=== PATIENT | female | born 1985 | race Caucasian/White ===

== ENCOUNTER 2021-06-19 14:43 | Inpatient (IN) ==
--- NOTE | 2021-06-19 17:03 | XRay Report ---
XR chest 1V portable CLINICAL HISTORY: Sepsis. COMPARISON STUDY: No previous studies for comparison. FINDINGS: Lung volumes are mildly diminished. There is no pneumothorax. There may be small bilateral pleural effusions. There is enlargement of the cardiac silhouette. Extensive bilateral airspace opaci ties are noted as well as interstitial thickening. IMPRESSION: 1. Extensive bilateral airspace opacities. The findings favor multifocal pneumonia. Radiographic foll ow-up to ensure resolution is recommended. 2. Low lung volumes. Equivocal bilateral pleural effusions. 3. Mild enlargement of the cardiac silhouette. ACT 112: Negative or not required by law. Electronically signed by: Isidro Marrero M.D. 06/19/2021 5:01 PM
--- NOTE | 2021-06-19 17:26 | Emergency Department Note ---
History of Present Illness General Chief complaint: Shortness of Breath/Dyspnea Stated complaint: COVID POSITIVE/SOB Time Seen by Provider: 06/19/21 15:46 History of Present Illness Provider complaint: Shortness of breath, weakness, cough, fever, nausea vomiting, Covid positiv Onset (ago): day(s) 5 Maximum Pain Intensity: 8 Associated symptoms: + chest pain, + cough, + fever/chills, + headaches, + malaise, + nausea/vomiting and + shortness of breath 35-year-old female presents emergency department for shortness of breath, weakness, cough, fever, nausea and vomiting, malaise. Patient reports she tested positive for COVID-19 5 days ago. Patient states she has been seen in the [place] emergency department multiple times. Patient states that she was there on and was told that she has a blood clot in her lung and sent home on Eliquis. Patient states she went back on Thursday and they told her t hat she did not have a blood clot in her lung and to stop taking the Eliquis. After her visit on Thursday she was discharged with home oxygen and steroids. Patient reports she is not been able to keep any fluids in her body for the last 4 days and has not felt better since being on the steroids or oxygen. Patient reports that she did have 1 dose of the Covid vaccine but is not fully vaccinated. Patient states she was discharged with oxygen supposed be on 2 L of oxygen. Patient reports she felt increasing shortness of breath so she called her PCP Dr. Jauregui who took her to increase her oxygen to 4 L of oxygen via nasal cannula. Patient states on 4 L of oxygen she still feels short of breath. Home Medications Medication Instructions Recorded Confirmed Type naproxen 500 mg tablet 500 mg PO Q12H PRN tab 03/14/21 06/19/21 History hydroxyzine HCl 25 mg tablet 25 mg PO TID PRN #30 tab 03/18/21 06/19/21 Rx omeprazole 20 mg tablet,delayed 20 mg PO DAILY #30 tab 04/05/21 06/19/21 Rx release venlafaxine 75 mg capsule,extended 150 mg PO DAILY 30 Days #60 cap 05/15/21 06/19/21 Rx release 24 hr dexamethasone 6 mg tablet 6 mg PO DAILY 7 Days #7 tab 06/17/21 06/19/21 Rx apixaban 5 mg (74 tabs) tablets in 5 mg PO DAILY 06/19/21 06/19/21 History a dose pack (Eliquis) Allergies Allergy/AdvReac Type Severity Reaction Status Date / Time No Known Allergies Allergy Mild Unverified 06/19/21 15:42 Past Med/Surg History Medical History (Updated 06/19/21 @ 21:44 by Dane Mcknight) Anxiety COVID Depression GERD (gastroesophageal reflux disease) History of pneumonia Migraine headache Vitamin D deficiency Surgical History H/O tubal ligation S/P right knee arthroscopy Family History Father Diabetes Mother No problems noted. Denies family history of Ovarian cancer Prostate cancer Myocardial infarction Breast cancer Colorectal cancer Cancer Social History Smoking Status: Current every day smoker Tobacco Type: E-cigarettes / Vaping Age Started Using Tobacco: 19; Age Quit Using Tobacco: 33; packs per day: 0.5; Years Smoked: 3; Second Hand Exposure: Yes; Hx Alcohol Use: No Hx Substance Use: No Preferred Language: Ivorian Visual Impairment: No Limitations Hearing Ability: Normal Belly Roller Required: No Beliefs That Will Affect Care: None marital status: Current Living Situation: Spouse Current Living Situation Comment: spouse, 2 children current occupational status: employed current occupation: works at [employer] How many Children do You have: 2 Feels Safe at Home: Yes Childhood Exposure to Second-Hand Smoke: Yes caffeine: Yes during the past year weight has: remained stable Dental Care, Regularly: Yes Physical Activity Frequency: Does not Exercise Physical Activity Frequency Comment: 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,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) Seatbelt Use: always Sunscreen Use: Yes Review of Systems A total of 10 systems reviewed and were otherwise negative Physical Exam Vital Signs Vital Signs - 24 hr 06/19/21 14:59 06/19/21 15:52 06/19/21 16:00 Temperature 36.4 C L Temperature Source Temporal Artery Scan Pulse Rate 95 H 87 94 H Pulse Rate [Apical] Pulse Rate from SpO2 Sensor 88 95 H Pulse Rhythm [Apical] Respiratory Rate 24 25 H 22 Respiratory Effort / Characteristics Spontaneous Labored Respiratory Depth Normal Respiratory Pattern Regular Blood Pressure 165/98 H Blood Pressure [Left Arm] Blood Pressure Mean 120 Blood Pressure Mean [Left Arm] Blood Pressure Position [Left Arm] Pulse Oximetry 92 90 90 Oxygen Delivery Method Nasal Cannula Oxygen Flow Rate 4 Fraction of Inspired Oxygen Sepsis Recent Fever Within 48 Hours No Sepsis New/Unexplained Change in Mental Status No Sepsis Action Taken by Nursing No Action Required 06/19/21 16:10 06/19/21 16:17 06/19/21 16:20 Temperature Temperature Source Pulse Rate 92 H 94 H Pulse Rate [Apical] 95 H Pulse Rate from SpO2 Sensor 92 H 94 H Pulse Rhythm [Apical] Respiratory Rate 24 30 H 29 H Respiratory Effort / Characteristics Spontaneous Respiratory Depth Respiratory Pattern Blood Pressure Blood Pressure [Left Arm] Blood Pressure Mean Blood Pressure Mean [Left Arm] Blood Pressure Position [Left Arm] Pulse Oximetry 91 93 91 Oxygen Delivery Method High Flow Nasal Cannula Oxygen Flow Rate 30 Fraction of Inspired Oxygen 60 Sepsis Recent Fever Within 48 Hours Sepsis New/Unexplained Change in Mental Status Sepsis Action Taken by Nursing 06/19/21 16:30 06/19/21 16:40 06/19/21 16:50 Temperature Temperature Source Pulse Rate 94 H 94 H 94 H Pulse Rate [Apical] Pulse Rate from SpO2 Sensor 94 H 93 H 90 Pulse Rhythm [Apical] Respiratory Rate 28 H 29 H 23 Respiratory Effort / Characteristics Respiratory Depth Respiratory Pattern Blood Pressure Blood Pressure [Left Arm] Blood Pressure Mean Blood Pressure Mean [Left Arm] Blood Pressure Position [Left Arm] Pulse Oximetry 92 92 93 Oxygen Delivery Method Oxygen Flow Rate Fraction of Inspired Oxygen Sepsis Recent Fever Within 48 Hours Sepsis New/Unexplained Change in Mental Status Sepsis Action Taken by Nursing 06/19/21 17:00 06/19/21 17:10 06/19/21 17:20 Temperature Temperature Source Pulse Rate 93 H 95 H 96 H Pulse Rate [Apical] Pulse Rate from SpO2 Sensor 93 H 96 H 95 H Pulse Rhythm [Apical] Respiratory Rate 30 H 27 H 31 H Respiratory Effort / Characteristics Respiratory Depth Respiratory Pattern Blood Pressure 152/99 H Blood Pressure [Left Arm] Blood Pressure Mean 116 Blood Pressure Mean [Left Arm] Blood Pressure Position [Left Arm] Pulse Oximetry 93 93 93 Oxygen Delivery Method Oxygen Flow Rate Fraction of Inspired Oxygen Sepsis Recent Fever Within 48 Hours Sepsis New/Unexplained Change in Mental Status Sepsis Action Taken by Nursing 06/19/21 17:30 06/19/21 17:40 06/19/21 17:50 Temperature Temperature Source Pulse Rate 98 H 96 H 97 H Pulse Rate [Apical] Pulse Rate from SpO2 Sensor 98 H 98 H 97 H Pulse Rhythm [Apical] Respiratory Rate 27 H 25 H 28 H Respiratory Effort / Characteristics Respiratory Depth Respiratory Pattern Blood Pressure Blood Pressure [Left Arm] Blood Pressure Mean Blood Pressure Mean [Left Arm] Blood Pressure Position [Left Arm] Pulse Oximetry 93 95 93 Oxygen Delivery Method Oxygen Flow Rate Fraction of Inspired Oxygen Sepsis Recent Fever Within 48 Hours Sepsis New/Unexplained Change in Mental Status Sepsis Action Taken by Nursing 06/19/21 18:00 06/19/21 18:10 06/19/21 18:52 Temperature Temperature Source Pulse Rate 110 H 102 H Pulse Rate [Apical] 107 H Pulse Rate from SpO2 Sensor 111 H 101 H Pulse Rhythm [Apical] Respiratory Rate 30 H 30 H 33 H Respiratory Effort / Characteristics Spontaneous Respiratory Depth Respiratory Pattern Blood Pressure Blood Pressure [Left Arm] Blood Pressure Mean Blood Pressure Mean [Left Arm] Blood Pressure Position [Left Arm] Pulse Oximetry 91 91 94 Oxygen Delivery Method High Flow Nasal Cannula Oxygen Flow Rate 40 Fraction of Inspired Oxygen 80 Sepsis Recent Fever Within 48 Hours Sepsis New/Unexplained Change in Mental Status Sepsis Action Taken by Nursing 06/19/21 20:03 06/19/21 20:04 06/19/21 20:05 Temperature Temperature Source Pulse Rate Pulse Rate [Apical] 113 H Pulse Rate from SpO2 Sensor Pulse Rhythm [Apical] Regular Respiratory Rate 16 34 H Respiratory Effort / Characteristics Non-Labored Labored Nasal Flaring Short of Breath SOB on Exertion Respiratory Depth Normal Respiratory Pattern Blood Pressure Blood Pressure [Left Arm] 180/110 H Blood Pressure Mean Blood Pressure Mean [Left Arm] 133 Blood Pressure Position [Left Arm] Sitting Pulse Oximetry 92 91 91 Oxygen Delivery Method BiPAP High Flow Nasal Cannula Oxygen Flow Rate Fraction of Inspired Oxygen Sepsis Recent Fever Within 48 Hours Sepsis New/Unexplained Change in Mental Status Sepsis Action Taken by Nursing Physical Exam GENERAL: She is oriented to person, place, and time. She appears well-developed and well-nourished. She does not appear distressed. HENT: Exam performed. -Head: Normocephalic and atraumatic. -Right Ear: External ear normal. No mastoid tenderness. -Left Ear: External ear normal. No mastoid tenderness. -Mouth/Throat: The oropharynx is clear and moist. No trismus in the jaw. No dental abscesses or uvula swelling. No oropharyngeal exudate or tonsillar abscesses. EYES: Conjunctivae and EOM are normal. Pupils are equal, round, and reactive to light. Right eye exhibits no discharge. Left eye exhibits no discharge. No scleral icterus. NECK: Normal range of motion. Neck supple. No JVD present. No spinous process tenderness present. No carotid bruit present. No rigidity. No tracheal deviation and normal range of motion present. No Brudzinski's sign and no Kernig's sign noted. CV: Normal rate, regular rhythm, normal heart sounds and intact distal pulses. There is no peripheral edema. Palpable radial pulses bue. PULM/CHEST: Tachypneic. Rhonchi bilaterally. -Chest Wall: She exhibits no tenderness. ABD: The abdomen is soft and obese Bowel sounds are normal. She has no distension. No mass is present. There is no tenderness. There is no rebound, no guarding, no Quiñonez's sign and no tenderness at McBurney's point. Rovsig negative MUSC/SKEL: Normal range of motion. There is no peripheral edema, tenderness or deformity. LYMPH: No cervical adenopathy. NEURO: She is alert and oriented to person, place, and time. She has normal strength. No cranial nerve deficit or sensory deficit. Coordination and gait normal. GCS eye subscore is 4. GCS verbal subscore is 5. GCS motor subscore is 6. Cerebellar tests wnl. SKIN: Skin is warm and dry. She is not diaphoretic. PSYCH: She has a normal mood and affect. Behavior is normal. Judgment and thought content normal. Course Course 1546: The patient was evaluated in room B8. A complete history and physical exam was performed Cardiac monitoring: An order was placed for continuous cardiac monitoring. The monitor shows a rate of 110 with sinus tachycardia rhythm EMR reviewed. There is a note from an on-call provider Severo on June 15, 2021. Patient was seen and diagnosed with COVID-[address] [facility] emergency department. Patient had a CT that was read overnight and a small pulmonary embolism and infarct was read. She was started on Eliquis starter pack and sent home. A repeat read by the radiologist the next day states study was limited for PE and cannot be excluded. Patient was started on a azithromycin and dexamethasone 6 mg on June 17, 2021 by provider Jonatan. 1830: Labs show white blood cell count 5.7. Hemoglobin 12.7. VBG shows no evidence of hypercapnia. Venous pH 7.51 venous PCO2 44 venous bicarb 35. Electrolytes show potassium of 2.8. Lactic acid is 1.9. Potassium will be replaced in the emergency department IV and orally. 1900:Called to bedside by nursing. Patient is having difficulty with the high flow nasal cannula and saying she is having difficulty breathing. We will increase the high flow oxygen. Patient vomited. Patient states she feels very anxious. Patient ordered Ativan and Zofran. 2000: Patient not tolerating high flow nasal cannula well. Will switch patient to BiPAP. 2029: CTA negative for PE. Imaging shows bilateral multifocal pneumonia. Patient not comfortable on BiPAP switch back to high flow nasal cannula. [facility]. He asked for ABG and Decadron 6 mg IV to be ordered for the patient also. Administered Medications Potassium Chloride 40 meq/ (Sodium Chloride) 1,020 mls @ 125 mls/hr IV .Q8H10M TIFFANI Stop: 07/19/21 18:29 Last Admin: 06/19/21 19:55 Dose: 125 mls/hr Documented by: [id number] Discontinued Medications Dexamethasone (Dexamethasone Sod Inj 4 Mg/Ml Vial) 6 mg IV NOW STA Stop: 06/19/21 20:15 Last Admin: 06/19/21 20:25 Dose: 6 mg Documented by: [id number] Lorazepam (Ativan) 0.5 mg in 1 mls @ 1 mls/min IV NOW STA Stop: 06/19/21 19:11 Last Admin: 06/19/21 19:19 Dose: 1 mls/min Documented by: [id number] Morphine Sulfate (Morphine Sulfate 4 Mg/Ml 1 Ml Carp\Vial) 4 mg IV NOW STA Stop: 06/19/21 20:21 Last Admin: 06/19/21 20:25 Dose: 4 mg Documented by: [id number] Ondansetron HCl (Ondansetron Inj 2 Mg/Ml 2 Ml Vial) 4 mg IV NOW STA Stop: 06/19/21 19:17 Last Admin: 06/19/21 19:19 Dose: 4 mg Documented by: [id number] Ondansetron HCl (Ondansetron Inj 2 Mg/Ml 2 Ml Vial) Confirm Administered Dose 4 mg .ROUTE .STK-MED ONE Stop: 06/19/21 19:18 Last Admin: 06/19/21 20:14 Dose: Not Given Documented by: [id number] Potassium Chloride (Potassium Chloride 10 Meq Tabcr) 40 meq PO NOW STA Stop: 06/19/21 18:07 Last Admin: 06/19/21 19:18 Dose: 40 meq Documented by: [id number] Critical Care Time Critical Care Time: Yes Total Critical Care Time: 43 I have personally spent greater than 43 minutes of critical care time in the direct management of this patient. This includes bedside care, interpretation of diagnostic studies, and testing, discussion with consultants, patient, and f amily members, and other required patient management activities. This 43 minutes is in excess of all separately billable procedures. Medical Decision Making Laboratory Data Result diagrams: 06/19/21 17:18 06/19/21 17:18 Lab Results 06/19/21 06/19/21 06/19/21 Range/Units 17:18 17:18 17:18 WBC 5.72 (4.8-10.8) K/uL RBC 4.22 (4.2-5.4) M/uL Hgb 12.7 (12.0-16.0) g/dL Hct 36.7 L (37-47) % MCV 87.0 (80-100) fL MCH 30.1 (25-34) pg MCHC 34.6 (32-36) g/dL RDW Std Deviation 44.2 (36.4-46.3) fL RDW Coeff of Jose Rafael 13.8 (11.5-14.5) % Plt Count 286 (130-400) K/uL MPV 9.8 (7.4-10.4) fL Immature Gran % (Auto) 0.9 % Neut % (Auto) 80.8 % Lymph % (Auto) 10.8 % [place] % (Auto) 7.3 % Eos % (Auto) 0.0 % Baso % (Auto) 0.2 % Neut # (Auto) 4.62 (1.4-6.5) K/uL Lymph # (Auto) 0.62 L (1.2-3.4) K/uL [place] # (Auto) 0.42 (0.11-0.59) K/uL Eos # (Auto) 0.00 (0-0.5) K/uL Baso # (Auto) 0.01 (0-0.2) K/uL Immature Gran # (Auto) 0.05 H (0.00-0.02) K/uL PT 10.7 (9.0-12.0) Seconds INR 1.1 (0.9-1.1) APTT 29.6 (21.0-31.0) Seconds PTT Ratio 1.1 ABG pH (7.35-7.45) ABG pCO2 (35-46) mmHg ABG pO2 (80-95) mmHg ABG HCO3 (19-24) mmol/L ABG O2 Saturation (90-95) % ABG Base Excess (-9-1.8) mEq/L Jaskaran Test (Pos) VBG pH 7.51 H (7.36-7.41) VBG pCO2 44 (38-50) mmHg VBG pO2 32 mmHg VBG HCO3 35 mmol/L VBG O2 Saturation 66.2 % VBG Base Excess 10.4 mEq/L Barometric Pressure 736.1 mm/Hg Oxygen Given Sodium (136-145) mmol/L Potassium (3.5-5.1) mmol/L Chloride (98-107) mmol/L Carbon Dioxide (21-32) mmol/L Anion Gap (3-11) BUN (7-18) mg/dl Creatinine (0.6-1.2) mg/dl Est Cr Clr Drug Dosing Est GFR ( Amer) ml/min Est GFR (Non-Af Amer) ml/min BUN/Creatinine Ratio (10-20) Glucose (70-99) mg/dl Lactate (0.4-2.0) mmol/L Calcium (8.5-10.1) mg/dl Magnesium (1.8-2.4) mg/dl Total Bilirubin (0.2-1) mg/dl AST (15-37) U/L ALT (12-78) U/L Alkaline Phosphatase (45-117) U/L Total Creatine Kinase (26-192) U/L Troponin I (0-0.045) ng/ml Total Protein (6.4-8.2) gm/dl Albumin (3.4-5.0) gm/dl Globulin (2.5-4.0) gm/dl Albumin/Globulin Ratio (0.9-2) Procalcitonin (0-0.5) ng/ml Urine Color Urine Appearance (Clear) Urine pH (4.5-7.5) Ur Specific Dresser (1.000-1.030) Urine Protein (Negative) Urine Glucose (UA) (Negative) Urine Ketones (Negative) Urine Blood (Negative) Urine Nitrite (Negative) Urine Bilirubin (Negative) Urine Urobilinogen (Negative) Ur Leukocyte Esterase (Negative) COVID-19 Eval Order 06/19/21 06/19/21 06/19/21 Range/Units 17:18 17:18 17:18 WBC (4.8-10.8) K/uL RBC (4.2-5.4) M/uL Hgb (12.0-16.0) g/dL Hct (37-47) % MCV (80-100) fL MCH (25-34) pg MCHC (32-36) g/dL RDW Std Deviation (36.4-46.3) fL RDW Coeff of Jose Rafael (11.5-14.5) % Plt Count (130-400) K/uL MPV (7.4-10.4) fL Immature Gran % (Auto) % Neut % (Auto) % Lymph % (Auto) % [place] % (Auto) % Eos % (Auto) % Baso % (Auto) % Neut # (Auto) (1.4-6.5) K/uL Lymph # (Auto) (1.2-3.4) K/uL [place] # (Auto) (0.11-0.59) K/uL Eos # (Auto) (0-0.5) K/uL Baso # (Auto) (0-0.2) K/uL Immature Gran # (Auto) (0.00-0.02) K/uL PT (9.0-12.0) Seconds INR (0.9-1.1) APTT (21.0-31.0) Seconds PTT Ratio ABG pH (7.35-7.45) ABG pCO2 (35-46) mmHg ABG pO2 (80-95) mmHg ABG HCO3 (19-24) mmol/L ABG O2 Saturation (90-95) % ABG Base Excess (-9-1.8) mEq/L Jaskaran Test (Pos) VBG pH (7.36-7.41) VBG pCO2 (38-50) mmHg VBG pO2 mmHg VBG HCO3 mmol/L VBG O2 Saturation % VBG Base Excess mEq/L Barometric Pressure mm/Hg Oxygen Given Sodium 135 L (136-145) mmol/L Potassium 2.8 L (3.5-5.1) mmol/L Chloride 95 L (98-107) mmol/L Carbon Dioxide 32 (21-32) mmol/L Anion Gap 8.0 (3-11) BUN 10 (7-18) mg/dl Creatinine 0.75 (0.6-1.2) mg/dl Est Cr Clr Drug Dosing Not Reportable Est GFR ( Amer) 118.0 ml/min Est GFR (Non-Af Amer) 101.8 ml/min BUN/Creatinine Ratio 13.1 (10-20) Glucose 168 H (70-99) mg/dl Lactate 1.9 (0.4-2.0) mmol/L Calcium 8.5 (8.5-10.1) mg/dl Magnesium 2.6 H (1.8-2.4) mg/dl Total Bilirubin 0.5 (0.2-1) mg/dl AST 42 H (15-37) U/L ALT 33 (12-78) U/L Alkaline Phosphatase 66 (45-117) U/L Total Creatine Kinase 308 H (26-192) U/L Troponin I < 0.015 (0-0.045) ng/ml Total Protein 7.8 (6.4-8.2) gm/dl Albumin 2.6 L (3.4-5.0) gm/dl Globulin 5.2 H (2.5-4.0) gm/dl Albumin/Globulin Ratio 0.5 L (0.9-2) Procalcitonin 37.58 H (0-0.5) ng/ml Urine Color Urine Appearance (Clear) Urine pH (4.5-7.5) Ur Specific Dresser (1.000-1.030) Urine Protein (Negative) Urine Glucose (UA) (Negative) Urine Ketones (Negative) Urine Blood (Negative) Urine Nitrite (Negative) Urine Bilirubin (Negative) Urine Urobilinogen (Negative) Ur Leukocyte Esterase (Negative) COVID-19 Eval Order 06/19/21 06/19/21 06/19/21 Range/Units 17:18 20:28 20:28 WBC (4.8-10.8) K/uL RBC (4.2-5.4) M/uL Hgb (12.0-16.0) g/dL Hct (37-47) % MCV (80-100) fL MCH (25-34) pg MCHC (32-36) g/dL RDW Std Deviation (36.4-46.3) fL RDW Coeff of Jose Rafael (11.5-14.5) % Plt Count (130-400) K/uL MPV (7.4-10.4) fL Immature Gran % (Auto) % Neut % (Auto) % Lymph % (Auto) % [place] % (Auto) % Eos % (Auto) % Baso % (Auto) % Neut # (Auto) (1.4-6.5) K/uL Lymph # (Auto) (1.2-3.4) K/uL [place] # (Auto) (0.11-0.59) K/uL Eos # (Auto) (0-0.5) K/uL Baso # (Auto) (0-0.2) K/uL Immature Gran # (Auto) (0.00-0.02) K/uL PT (9.0-12.0) Seconds INR (0.9-1.1) APTT (21.0-31.0) Seconds PTT Ratio ABG pH (7.35-7.45) ABG pCO2 (35-46) mmHg ABG pO2 (80-95) mmHg ABG HCO3 (19-24) mmol/L ABG O2 Saturation (90-95) % ABG Base Excess (-9-1.8) mEq/L Jaskaran Test (Pos) VBG pH (7.36-7.41) VBG pCO2 (38-50) mmHg VBG pO2 mmHg VBG HCO3 mmol/L VBG O2 Saturation % VBG Base Excess mEq/L Barometric Pressure mm/Hg Oxygen Given Sodium (136-145) mmol/L Potassium (3.5-5.1) mmol/L Chloride (98-107) mmol/L Carbon Dioxide (21-32) mmol/L Anion Gap (3-11) BUN (7-18) mg/dl Creatinine (0.6-1.2) mg/dl Est Cr Clr Drug Dosing Est GFR ( Amer) ml/min Est GFR (Non-Af Amer) ml/min BUN/Creatinine Ratio (10-20) Glucose (70-99) mg/dl Lactate (0.4-2.0) mmol/L Calcium (8.5-10.1) mg/dl Magnesium (1.8-2.4) mg/dl Total Bilirubin (0.2-1) mg/dl AST (15-37) U/L ALT (12-78) U/L Alkaline Phosphatase (45-117) U/L Total Creatine Kinase Cancelled (26-192) U/L Troponin I (0-0.045) ng/ml Total Protein (6.4-8.2) gm/dl Albumin (3.4-5.0) gm/dl Globulin (2.5-4.0) gm/dl Albumin/Globulin Ratio (0.9-2) Procalcitonin (0-0.5) ng/ml Urine Color Dark Yellow Urine Appearance Clear (Clear) Urine pH 6.5 (4.5-7.5) Ur Specific Dresser > 1.045 H (1.000-1.030) Urine Protein 3+ H (Negative) Urine Glucose (UA) Negative (Negative) Urine Ketones Negative (Negative) Urine Blood 3+ H (Negative) Urine Nitrite Negative (Negative) Urine Bilirubin Negative (Negative) Urine Urobilinogen Negative (Negative) Ur Leukocyte Esterase Negative (Negative) COVID-19 Eval Order Covid19 at [facility] 06/19/21 Range/Units 20:28 WBC (4.8-10.8) K/uL RBC (4.2-5.4) M/uL Hgb (12.0-16.0) g/dL Hct (37-47) % MCV (80-100) fL MCH (25-34) pg MCHC (32-36) g/dL RDW Std Deviation (36.4-46.3) fL RDW Coeff of Jose Rafael (11.5-14.5) % Plt Count (130-400) K/uL MPV (7.4-10.4) fL Immature Gran % (Auto) % Neut % (Auto) % Lymph % (Auto) % [place] % (Auto) % Eos % (Auto) % Baso % (Auto) % Neut # (Auto) (1.4-6.5) K/uL Lymph # (Auto) (1.2-3.4) K/uL [place] # (Auto) (0.11-0.59) K/uL Eos # (Auto) (0-0.5) K/uL Baso # (Auto) (0-0.2) K/uL Immature Gran # (Auto) (0.00-0.02) K/uL PT (9.0-12.0) Seconds INR (0.9-1.1) APTT (21.0-31.0) Seconds PTT Ratio ABG pH 7.53 H* (7.35-7.45) ABG pCO2 34 L (35-46) mmHg ABG pO2 98 H (80-95) mmHg ABG HCO3 28 H (19-24) mmol/L ABG O2 Saturation 95.5 H (90-95) % ABG Base Excess 5.5 H (-9-1.8) mEq/L Jaskaran Test Pos (Pos) VBG pH (7.36-7.41) VBG pCO2 (38-50) mmHg VBG pO2 mmHg VBG HCO3 mmol/L VBG O2 Saturation % VBG Base Excess mEq/L Barometric Pressure 737.1 mm/Hg Oxygen Given 70% Sodium (136-145) mmol/L Potassium (3.5-5.1) mmol/L Chloride (98-107) mmol/L Carbon Dioxide (21-32) mmol/L Anion Gap (3-11) BUN (7-18) mg/dl Creatinine (0.6-1.2) mg/dl Est Cr Clr Drug Dosing Est GFR ( Amer) ml/min Est GFR (Non-Af Amer) ml/min BUN/Creatinine Ratio (10-20) Glucose (70-99) mg/dl Lactate (0.4-2.0) mmol/L Calcium (8.5-10.1) mg/dl Magnesium (1.8-2.4) mg/dl Total Bilirubin (0.2-1) mg/dl AST (15-37) U/L ALT (12-78) U/L Alkaline Phosphatase (45-117) U/L Total Creatine Kinase (26-192) U/L Troponin I (0-0.045) ng/ml Total Protein (6.4-8.2) gm/dl Albumin (3.4-5.0) gm/dl Globulin (2.5-4.0) gm/dl Albumin/Globulin Ratio (0.9-2) Procalcitonin (0-0.5) ng/ml Urine Color Urine Appearance (Clear) Urine pH (4.5-7.5) Ur Specific Dresser (1.000-1.030) Urine Protein (Negative) Urine Glucose (UA) (Negative) Urine Ketones (Negative) Urine Blood (Negative) Urine Nitrite (Negative) Urine Bilirubin (Negative) Urine Urobilinogen (Negative) Ur Leukocyte Esterase (Negative) COVID-19 Eval Order Imaging Data Radiologist's Impression: Chest X-Ray 06/19/21 16:09 XR chest 1V portable CLINICAL HISTORY: Sepsis. COMPARISON STUDY: No previous studies for comparison. FINDINGS: Lung volumes are mildly diminished. There is no pneumothorax. There may be small bilateral pleural effusions. There is enlargement of the cardiac silhouette. Extensive bilateral airspace opacities are noted as well as interstitial thickening. IMPRESSION: 1. Extensive bilateral airspace opacities. The findings favor multifocal pneumonia. Radiographic follow-up to ensure resolution is recommended. 2. Low lung volumes. Equivocal bilateral pleural effusions. 3. Mild enlargement of the cardiac silhouette. ACT 112: Negative or not required by law. Electronically signed by: Isidro Marrero M.D. 06/19/2021 5:01 PM Chest CTA 06/19/21 17:26 CT ANGIOGRAPHY OF THE CHEST, PULMONARY EMBOLUS PROTOCOL CLINICAL HISTORY: Shortness of breath. Covid. COMPARISON STUDY: Chest radiograph performed earlier today. TECHNIQUE: Following IV administration of 120 mL of Optiray, helical axial images of the chest were obtained utilizing the pulmonary embolus protocol. Maximal intensity projections and sagittal and coronal reformats were viewed on an independent 3D workstation. IV contrast was administered without complication. Automated exposure control was utilized for the study. A dose lowering technique was utilized adhering to the principles of ALARA. CT DOSE: 845.92 mGy.cm FINDINGS: No pulmonary emboli are identified although segmental and subsegmental pulmonary arteries are suboptimally assessed due to artifact on this exam. Mild cardiomegaly is noted. There is no pericardial effusion. Prominent mediastinal and hilar lymph nodes are likely reactive. Probable small hiatal hernia is noted. No pneumothorax is present. Trace bilateral pleural effusions are noted. Extensive bilateral airspace opacities throughout the lungs are noted. Central airways are patent. No acute fracture or suspicious lesion is identified within visualized portions of the bony thorax. There is mild splenomegaly. Probable hepatic steatosis is noted. IMPRESSION: 1. No pulmonary emboli identified although this exam is moderately compromised by artifact, as described above. 2. Extensive bilateral airspace opacities suggestive of viral pneumonia. 3. Mild cardiomegaly. 4. Trace bilateral pleural effusions. ACT 112: Negative or not required by law. Electronically signed by: Isidro Marrero M.D. 06/19/2021 8:14 PM ECG Data Indication: + chest pain and + SOB/dyspnea Rate (beats per minute): 92 Rhythm: + normal sinus ECG Intervals/blocks: + Normal QRS, + Normal OK and + Normal QT-c ECG ST segments: + Normal ST segments ECG Findings: + LVH MDM Narrative 1546: The patient was evaluated in room B8. A complete history and physical exam was performed Cardiac monitoring: An order was placed for continuous cardiac monitoring. The monitor shows a rate of 110 with sinus tachycardia rhythm EMR reviewed. There is a note from an on-call provider Severo on June 15, 2021. Patient was seen and diagnosed with COVID-[address] [facility] emergency department. Patient had a CT that was read overnight and a small pulmonary embolism and infarct was read. She was started on Eliquis starter pack and sent home. A repeat read by the radiologist the next day states study was limited for PE and cannot be excluded. Patient was started on a azithromycin and dexamethasone 6 mg on June 17, 2021 by provider Jonatan. 1830: Labs show white blood cell count 5.7. Hemoglobin 12.7. VBG shows no evidence of hypercapnia. Venous pH 7.51 venous PCO2 44 venous bicarb 35. Electrolytes show potassium of 2.8. Lactic acid is 1.9. Potassium will be replaced in the emergency department IV and orally. 1900:Called to bedside by nursing. Patient is having difficulty with the high flow nasal cannula and saying she is having difficulty breathing. We will increase the high flow oxygen. Patient vomited. Patient states she feels very anxious. Patient ordered Ativan and Zofran. 2000: Patient not tolerating high flow nasal cannula well. Will switch patient to BiPAP. 2030: CTA negative for PE. Imaging shows bilateral multifocal pneumonia. Patient not comfortable on BiPAP switch back to high flow nasal cannula. Patient will be admitted to the [facility] hospitalist team Dr. Gastelum notified. He asked for ABG and Decadron 6 mg IV to be ordered for the patient also. Impression & Plan 2019 novel coronavirus-infected pneumonia (NCIP), Acute hypokalemia Discharge Plan Visit Data Chief Complaint: Shortness of Breath/Dyspnea Stated Complaint: COVID POSITIVE/SOB ED Provider: Dane Mcknight Discharge Problem: 2019 novel coronavirus-infected pneumonia (NCIP), Acute hypokalemia Patient Disposition: Admitted As Inpatient Forms Stand Alone Forms: My [facility] Prescriptions Prescriptions: No Action naproxen 500 mg tablet 500 mg PO Q12H PRN (Reason: pain) RF: 0 hydroxyzine HCl 25 mg tablet 25 mg PO TID PRN (Reason: anxiety) Qty: 30 RF: 0 dexamethasone 6 mg tablet 6 mg PO DAILY 7 Days Qty: 7 RF: 0 omeprazole 20 mg tablet,delayed release (DR/EC) 20 mg PO DAILY Qty: 30 RF: 0 venlafaxine 75 mg capsule,extended release 24hr 150 mg PO DAILY 30 Days Qty: 60 RF: 2 Eliquis 5 mg (74 tabs) tablets,dose pack 5 mg PO DAILY RF: 0 Referrals Referrals: Natalia Rangel DO [Primary Care Provider] -
[2021-06-19 17:30] LABS: Basophils # (auto) 0.01 K/uL (0-0.2); Basophils % (auto) 0.2 %; Hematocrit (blood only) 36.7 % (37-47); Hemoglobin 12.7 g/dL (12.0-16.0); Immature Granulocytes # (auto) 0.05 K/uL (0.00-0.02); Immature Granulocytes % (auto) 0.9 %; Lymphocytes # (auto) 0.62 K/uL (1.2-3.4); Lymphocytes % (auto) 10.8 %; Mean Corpuscular Hemoglobin 30.1 pg (25-34); Mean Corpuscular Hgb Conc 34.6 g/dL (32-36); Mean Platelet Volume 9.8 fL (7.4-10.4); Monocytes # (auto) 0.42 K/uL (0.11-0.59); Monocytes % (auto) 7.3 %; Neutrophils # (auto) 4.62 K/uL (1.4-6.5); Neutrophils % (auto) 80.8 %; Platelet Count 286 K/uL (130-400); RDW Coefficient of Variation 13.8 % (11.5-14.5); RDW Standard Deviation 44.2 fL (36.4-46.3); Red Blood Count 4.22 M/uL (4.2-5.4); White Blood Count 5.72 K/uL (4.8-10.8)
[2021-06-19 17:34] LABS: Base Excess VBG 10.4 mEq/L; Oxygen Saturation VBG 66.2 %; pH VBG 7.51 (7.36-7.41)
[2021-06-19 17:41] LABS: INR 1.1 (0.9-1.1); Partial Thromboplastin Ratio 1.1; Partial Thromboplastin Time 29.6 Seconds (21.0-31.0); Prothrombin Time 10.7 Seconds (9.0-12.0)
[2021-06-19 17:57] LABS: Alanine Aminotransferase 33 U/L (12-78); Albumin Level 2.6 gm/dl (3.4-5.0); Aspartate Aminotransferase 42 U/L (15-37); BUN Creatinine Ratio 13.1 (10-20); Blood Urea Nitrogen 10 mg/dl (7-18); Calcium 8.5 mg/dl (8.5-10.1); Carbon Dioxide 32 mmol/L (21-32); Chloride 95 mmol/L (98-107); Est GFR (Non-African American) 101.8 ml/min; Glucose 168 mg/dl (70-99); Magnesium 2.6 mg/dl (1.8-2.4); Potassium 2.8 mmol/L (3.5-5.1); Sodium 135 mmol/L (136-145)
[2021-06-19] MEDS ORDERED: OPTIRAY 320 125ml IV ONE (17:58)
[2021-06-19 18:02] LABS: Albumin Globulin Ratio 0.5 (0.9-2); Alkaline Phosphatase 66 U/L (45-117); Bilirubin,Total 0.5 mg/dl (0.2-1); Globulin 5.2 gm/dl (2.5-4.0); Total Protein 7.8 gm/dl (6.4-8.2); Troponin I < 0.015 ng/ml (0-0.045)
[2021-06-19] MEDS ORDERED: POTASSIUM CHLORIDE 10 MEQ TABCR PO STA (18:06)
[2021-06-19 18:15] LABS: Creatine Kinase 308 U/L (26-192)
[2021-06-19] MEDS ORDERED: POTASSIUM CHLORIDE 40 MEQ in SODIUM CHLORIDE 0.9% 1000ML 1,000 ML IV SCH (18:15)
[2021-06-19] MEDS ORDERED: LORazepam 0.5 MG/1 ML VIAL IV STA (19:10)
[2021-06-19] MEDS ORDERED: ONDANSETRON INJ 2 MG/ML 2 ML VIAL IV STA (19:16)
[2021-06-19] MEDS ORDERED: ONDANSETRON INJ 2 MG/ML 2 ML VIAL ONE (19:17)
[2021-06-19] MEDS: POTASSIUM CHLORIDE 40 MEQ in SODIUM CHLORIDE 0.9% 1000ML 1,000 ML IV SCH (19:55)
[2021-06-19] MEDS ORDERED: DEXAMETHASONE SOD INJ 4 MG/ML VIAL IV STA (20:14)
--- NOTE | 2021-06-19 20:15 | CT Scan Report ---
CT ANGIOGRAPHY OF THE CHEST, PULMONARY EMBOLUS PROTOCOL CLINICAL HISTORY: Shortness of breath. Covid. COMPARISON STUDY: Chest radiograph performed earlier today. TECHNIQUE: Following IV administration of 120 mL of Optiray, helical axial images of the chest were o btained utilizing the pulmonary embolus protocol. Maximal intensity projections and sagittal and cor onal reformats were viewed on an independent 3D workstation. IV contrast was administered without co mplication. Automated exposure control was utilized for the study. A dose lowering technique was ut ilized adhering to the principles of ALARA. CT DOSE: 845.92 mGy.cm FINDINGS: No pulmonary emboli are identified although segmental and subsegmental pulmonary arteries are suboptimally assessed due to artifact on this exam. Mild cardiomegaly is noted. There is no peric ardial effusion. Prominent mediastinal and hilar lymph nodes are likely reactive. Probable small hiat al hernia is noted. No pneumothorax is present. Trace bilateral pleural effusions are noted. Extensiv e bilateral airspace opacities throughout the lungs are noted. Central airways are patent. No acute f racture or suspicious lesion is identified within visualized portions of the bony thorax. There is mi ld splenomegaly. Probable hepatic steatosis is noted. IMPRESSION: 1. No pulmonary emboli identified although this exam is moderately compromised by artifact, as descri bed above. 2. Extensive bilateral airspace opacities suggestive of viral pneumonia. 3. Mild cardiomegaly. 4. Trace bilateral pleural effusions. ACT 112: Negative or not required by law. Electronically signed by: Isidro Marrero M.D. 06/19/2021 8:14 PM
[2021-06-19] MEDS ORDERED: MoRPHine SULFATE 4 MG/ML 1 ML CARP\\VIAL IV STA (20:20)
[2021-06-19 20:41] LABS: Allen Test Pos (Pos); Base Excess ABG 5.5 mEq/L (-9-1.8); HCO3 ABG 28 mmol/L (19-24); Oxygen Saturation ABG 95.5 % (90-95); PCO2 ABG 34 mmHg (35-46); PO2 ABG 98 mmHg (80-95)
[2021-06-19 20:42] LABS: pH ABG 7.53 (7.35-7.45)
--- NOTE | 2021-06-19 20:44 | History & Physical Report ---
Date of Service June 19, 2021 Assessment & Plan (1) 2019 novel coronavirus-infected pneumonia (NCIP): Plan: 35 yo F admitted for hypoxic respiratory failure due to covid pneumonia. 1. Hypoxic Respiratory failure due to COVID19 - symptoms started with past 9 days, initiating remdesivir - daily decadron - trend CBCs, cmps - titrate O2 >90% 2. Superimposed Pneumonia - procal 35 - mrsa nares pending - given severity of symptoms, CT chest findings, and multiple visits to [facility] prior to worsening symptoms -- coverage for hospital associated pneumonia with vanc and cefepime 3. Mixed Metabolic and Respiratory Alkalosis - 7.53/34/98/28 - likely ongoing and worsening anxiety, emesis - no hx kidney disease Electrolyte disturbances likely secondary to vomiting, poor intake - Na 132 - K 3.2, repleted in ER - daily cmp Anxiety - continue hydroxyzine, venlafaxine DVT ppx: 70 mg Q12 high dose covid ppx FEN/GI: regular diet Bowel regimen: prn miralax Code Status: full code Dispo: PCU (2) Acute hypokalemia: (3) Anxiety: History of Present Illness Primary Care Provider: Natalia Rangel DO Is a 35-year-old female with a past medical history of severe anxiety who presents emergency department for worsening headaches, shortness of breath. She was seen at ER on June 10 and diagnosed with Covid at that time. She states that she had been exposed to Covid positive individual on June 07. She has been experiencing symptoms of fevers and chills, cough since June 10. Original presentation to [place] they did a CT scan of her chest which revealed a blood clot she was started on an oral anticoagulant and sent home. She represented to [place] ER on June 15 at which time the repeat CT scan of her chest could not find a pulmonary embolus and she was advised to stop taking the oral anticoagulant. She was discharged home with oral Decadron 6 mg daily to be taken with food. She did say that she has been having severe nausea and decreased appetite and has not been able to keep any food down. She states that she is not sure how much of the Decadron she was actually able to absorb as she usually threw up after having to take it. Allergies Allergy/AdvReac Type Severity Reaction Status Date / Time No Known Allergies Allergy Mild Unverified 11/10/21 15:42 Home Medications Medication Instructions Recorded Confirmed Type naproxen 500 mg tablet 500 mg PO Q12H PRN tab 03/14/21 06/19/21 History hydroxyzine HCl 25 mg tablet 25 mg PO TID PRN #30 tab 03/18/21 06/19/21 Rx omeprazole 20 mg tablet,delayed 20 mg PO DAILY #30 tab 04/05/21 06/19/21 Rx release venlafaxine 75 mg capsule,extended 150 mg PO DAILY 30 Days #60 cap 05/15/21 06/19/21 Rx release 24 hr dexamethasone 6 mg tablet 6 mg PO DAILY 7 Days #7 tab 06/17/21 06/19/21 Rx apixaban 5 mg (74 tabs) tablets in 5 mg PO DAILY 06/19/21 06/19/21 History a dose pack (Eliquis) Past Med/Surg History Medical History (Updated 06/20/21 @ 10:51 by Ulysses Thomas MD) Anxiety COVID Depression GERD (gastroesophageal reflux disease) History of pneumonia Migraine headache Vitamin D deficiency Surgical History H/O tubal ligation S/P right knee arthroscopy Family History Father Diabetes Mother No problems noted. 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 Beliefs That Will Affect Care: None marital status: Current Living Situation: Family Current Living Situation Comment: Lives with at home current occupational status: employed current occupation: works at [employer] How many Children do You have: 2 Other Information That Helps Us Care for You: No Feels Safe at Home: Yes Safety Concerns: Feels Safe At This Time Childhood Exposure to Second-Hand Smoke: Yes caffeine: Yes during the past year weight has: remained stable Dental Care, Regularly: Yes Physical Activity Frequency: Does not Exercise Physical Activity Frequency Comment: 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 Normal S1, S2 Pulm: difficult to auscultate due to patient's shallow breaths, appropriate air entry bilaterally, tachypneic Abd: soft, nontender, nondistended, normal bowel sounds, no rebound or guarding Extremities: 2+ peripheral pulses, no edema Neuro: no focal deficits, moving all 4 limbs, A&Ox3 Results & Data Results & Data ([facility]) Vital Signs (Past 12 Hours) Vital Signs Temp Pulse Pulse Resp BP BP Pulse Ox 06/19/21 20:05 34 H 91 06/19/21 20:04 91 06/19/21 20:03 113 H 16 180/110 H 92 06/19/21 18:52 107 H 33 H 94 06/19/21 18:10 102 H 30 H 91 06/19/21 18:00 110 H 30 H 91 06/19/21 17:50 97 H 28 H 93 06/19/21 17:40 96 H 25 H 95 06/19/21 17:30 98 H 27 H 93 06/19/21 17:20 96 H 31 H 93 06/19/21 17:10 95 H 27 H 93 06/19/21 17:00 93 H 30 H 152/99 H 93 06/19/21 16:50 94 H 23 93 06/19/21 16:40 94 H 29 H 92 06/19/21 16:30 94 H 28 H 92 06/19/21 16:20 94 H 29 H 91 06/19/21 16:17 95 H 30 H 93 06/19/21 16:10 92 H 24 91 06/19/21 16:00 94 H 22 90 06/19/21 15:52 87 25 H 90 06/19/21 14:59 36.4 C L 95 H 24 165/98 H 92 Supervising Physician Co-Signing Physician Notes Attending addendum: I have physically seen this patient, have supervised the medical residents activities, and agree with the H&P unless as otherwise noted. Assessment and Plan: COVID-19 pneumonia with hypoxia/acute respiratory failure with hypoxia- Decadron 6 mg IV daily Remdesivir IV per protocol Guaifenesin extended release 1200 mg p.o. twice daily Vitamin D 1000 international units p.o. daily Zinc sulfate 220 mg p.o. daily Ceftriaxone 1 g IV daily and azithromycin 500 mg IV daily to address possible secondary superimposed bacterial pneumonia Duonebs every 4 hours while awake and every 2 hours when necessary. Would likely benefit from antibody treatment, will therefore consult pulmonology/critical care Remaining orders and notations as noted Resident Activity Tracking Resident Involvement: Resident Care Provided Care Provided: Adult Hospital Medicine
[2021-06-19] MEDS ORDERED: REMDESIVIR 200 MG in SODIUM CHLORIDE 0.9% 210 ML IV STA (21:18)
[2021-06-19 21:21] LABS: Appearance Urine Clear (Clear); Bacteria Urine Automated 1+ (Negative); Bilirubin Urine Negative (Negative); Blood Urine 3+ (Negative); Color Urine Dark Yellow; Epithelial Cell Urine Auto >30 /lpf (0-5); Glucose Urine UA Negative (Negative); Ketones Urine Negative (Negative); Leukocyte Esterase Urine Negative (Negative); Nitrite Urine Negative (Negative); Protein Urine 3+ (Negative); RBC Urine Automated >30 /hpf (0-4); Specific Gravity Urine > 1.045 (1.000-1.030); Urobilinogen Urine Negative (Negative); pH Urine 6.5 (4.5-7.5)
[2021-06-19 21:39] LABS: Cast Urine Automated 0 /lpf (0-5)
[2021-06-19] MEDS ORDERED: ENOXAPARIN INJ 40 MG/0.4 ML SYR SQ SCH (22:55)
[2021-06-19] MEDS ORDERED: NITROGLYCERIN SL 0.4 MG/TAB TAB SL PRN (22:55)
[2021-06-19] MEDS ORDERED: IPRATROPIUM BROMIDE/ALBUTEROL respimat INH INH PRN (22:55)
[2021-06-19] MEDS ORDERED: IPRATROPIUM BROMIDE HFA INHALER INH PRN (23:03)
[2021-06-19] MEDS ORDERED: ALBUTEROL HFA 8 GM INHALER INH PRN (23:03)
[2021-06-19] MEDS ORDERED: VANCOMYCIN CONSULT ACTIVE PRN (23:09)
[2021-06-19] MEDS ORDERED: VANCOMYCIN HCL 1,000 MG/270 ML BAG IV STA (23:09)
[2021-06-19] MEDS: LORazepam 0.5 MG/1 ML VIAL IV PRN (23:27)
[2021-06-20] MEDS ORDERED: AZITHROMYCIN 250 MG in DEXTROSE 5% 250 ML IV SCH
[2021-06-20] MEDS: guaiFENesin 600 MG TABCR PO SCH ×3 (00:28→20:26)
[2021-06-20] MEDS ORDERED: VANCOMYCIN HCL 2,750 MG in SODIUM CHLORIDE 0.9% 500 ML IV SCH (00:30)
[2021-06-20] MEDS ORDERED: SODIUM CHLORIDE 0.9% 10ML FLUSH IV SCH ×2 (00:45→21:00)
[2021-06-20] MEDS: CEFEPIME 2,000 MG in SYRINGE 0 ML IV SCH ×3 (01:03→16:44)
[2021-06-20 02:11] LABS: BUN Creatinine Ratio 14.7 (10-20); Calcium 7.8 mg/dl (8.5-10.1); Creatinine Clr Calc Pharmacy 170.9 ml/min; Potassium 3.2 mmol/L (3.5-5.1)
--- NOTE | 2021-06-20 03:46 | Pharmacy Report ---
Pharmacy Abx Initial Consult - Date of Service June 20, 2021 - Pharmacy Dosing Scope Date of Consult: 06/20/21 Consultation requested by: Dr. SOLOMON Pharmacy is consulted to initiate VANCOMYCIN IV dosing therapy, order appropriate labs and adjust drug dose/frequency. - Subjective The patient is a 35 year old F admitted on 06/19/21 20:40. - Objective Height: 6 ft Weight: 143.3 kg Vital Signs (Past 12hrs): Vital Signs Temp Pulse Pulse Resp BP BP Pulse Ox 06/19/21 23:59 105 H 06/19/21 23:02 37.3 C 101 H 24 143/68 H 90 06/19/21 23:00 37.3 C 101 H 24 143/68 H 90 06/19/21 22:40 108 H 30 H 91 06/19/21 22:20 92 H 22 176/95 H 06/19/21 22:00 28 H 06/19/21 21:30 102 H 26 H 180/100 H 93 06/19/21 21:00 119 H 26 H 91 06/19/21 20:30 111 H 26 H 89 L 06/19/21 20:07 120 H 20 92 06/19/21 20:05 34 H 91 06/19/21 20:04 91 06/19/21 20:03 113 H 16 180/110 H 92 06/19/21 20:00 115 H 33 H 185/95 H 92 06/19/21 19:52 109 H 32 H 06/19/21 19:00 107 H 32 H 91 06/19/21 18:52 107 H 33 H 94 06/19/21 18:30 105 H 29 H 92 06/19/21 18:10 102 H 30 H 91 06/19/21 18:00 110 H 30 H 91 06/19/21 17:50 97 H 28 H 93 06/19/21 17:40 96 H 25 H 95 06/19/21 17:30 98 H 27 H 93 06/19/21 17:20 96 H 31 H 93 06/19/21 17:10 95 H 27 H 93 06/19/21 17:00 93 H 30 H 152/99 H 93 06/19/21 16:50 94 H 23 93 06/19/21 16:40 94 H 29 H 92 06/19/21 16:30 94 H 28 H 92 06/19/21 16:20 94 H 29 H 91 06/19/21 16:17 95 H 30 H 93 06/19/21 16:10 92 H 24 91 06/19/21 16:00 94 H 22 90 06/19/21 15:52 87 25 H 90 Lab Results (24hrs): Laboratory Tests (24 Hours) 06/20/21 06/19/21 06/19/21 01:36 17:18 17:18 WBC Neut # (Auto) Creatinine 0.72 Est Cr Clr Drug Dosing 170.9 Total Creatine Kinase Cancelled Procalcitonin 37.58 H 06/19/21 06/19/21 17:18 17:18 WBC 5.72 Neut # (Auto) 4.62 Creatinine 0.75 Est Cr Clr Drug Dosing Not Reportable Total Creatine Kinase 308 H Procalcitonin Micro Results: 06/19/21 20:28 Urine Culture - Pending Urine,Clean Catch 06/19/21 17:18 Aerobic Blood Culture - Pending Blood Anaerobic Blood Culture - Pending 06/19/21 17:18 Aerobic Blood Culture - Pending Blood Anaerobic Blood Culture - Pending - Assessment & Plan Assessment 35 year old F ordered Vancomycin/cefepime/azithromycin for covid PNA. Plan Vancomycin IV * Loading dose: 2750mg (~19 mg/kg) * Maintenance dose: 1500mg IV (~10 mg/kg) every 12 hours * Goal trough level for PNA : 15 to 20 mcg/mL * Trough level ordered for 06/22/21 @ 0200. * AUC/MIGUELITO is the preferred PK/PD target for vancomycin * AUC guided dosing is effective and associated with decreased risk of nephrotoxicity compared to traditional trough targets * The above dose is predicted to achieve target AUC/MIGUELITO of 400-600 mg/L.hr and may be associated with a 9 % risk of nephrotoxicity Pharmacy will continue to follow and will adjust dose/frequency as necessary. Thank you.
[2021-06-20] MEDS: POTASSIUM CHLORIDE 40 MEQ in SODIUM CHLORIDE 0.9% 1000ML 1,000 ML IV SCH (07:16)
[2021-06-20 08:03] LABS: Albumin Level 2.1 gm/dl (3.4-5.0); BUN Creatinine Ratio 17.7 (10-20); Calcium 7.9 mg/dl (8.5-10.1); Creatinine Clr Calc Pharmacy 221.2 ml/min; Est GFR (African American) 138.1 ml/min; Est GFR (Non-African American) 119.1 ml/min
[2021-06-20 08:05] LABS: Albumin Globulin Ratio 0.4 (0.9-2); Bilirubin,Total 0.5 mg/dl (0.2-1); Globulin 4.7 gm/dl (2.5-4.0); Total Protein 6.8 gm/dl (6.4-8.2)
[2021-06-20] MEDS: dexAMETHasone 6 MG in SYRINGE 0 ML IV SCH (08:23)
[2021-06-20] MEDS: VENLAFAXINE HCL XR 150 MG CAPXR PO SCH (08:23)
--- NOTE | 2021-06-20 10:05 | Hospitalist Progress Note ---
Date of Service June 20, 2021 Assessment & Plan (1) 2019 novel coronavirus-infected pneumonia (NCIP): Plan: tested positive on 06/10, diagnosed at [facility] progressed to the point of needing oxygen, worsening hypoxia, came to [facility] on 06/19 CTA chest shows diffuse, bilateral infiltrates, no evidence of pulmonary emboli dexamethasone 6mg IV daily, day 2 will stop Remdesivir as unlikely to help given 10 days of illness at this time start baricitinib given CRP of 15 and on high flow nasal canula already prone as much as possible, will place zhang and give Lasix 20mg IV continue Vapotherm, currently on 30L and 85%, try to titrate down after Lasix a nd proning maneuvers appreciate consult from Dr. Thomas (2) Acute respiratory failure due to COVID-19: Plan: requiring 30L and 85%, try to get her to lay prone as much as possible, place zhang to limit how much she needs to get up treatment of COVID with dexamethasone and baricitinib (3) Hypoxia: Plan: acute hypoxic respiratory failure see above (4) Bacterial pneumonia: Plan: procalcitonin in the 30's stop Vanco as MRSA swab negative continue Zithromax and Cefepime for 5-7 days repeat procalcitonin in 2 days (5) Acute hypokalemia: Plan: place on potassium 20mEq TID repeat BMP in morning (6) GERD (gastroesophageal reflux disease): (7) Vitamin D deficiency: (8) Anxiety: Plan: ativan PRN Admission and Anticipated Discharge Date Admission Date: June 19, 2021 Subjective patient appears ill, laying in bed, supine, breathing a little fast and belly breathing confirms she has been ill for 11 days now, seen several times in the ED at [place] reviewed her labs and personally looked at her CT images, diffuse ground glass opacities, no pulmonary emboli procalcitonin very high suggesting possible bacterial component patient was not eating at home, she is drinking some more fluids here and got IV fluids for her low potassium discussed with Dr. Thomas, CRP is high at 15, will give baricitinib discussed plan with patient, I want her prone as much as she can tolerate, we will place zhang, give Lasix 20mg IV now give potassium 20mEq TID encouraged her to focus on what she can control, which is eating and drinking, laying prone as much as possible discussed that I have seen similar situations where proning improved outcomes tremendously Review of Systems Review of Systems: All systems reviewed & are unremarkable except as noted in Subjective Constitutional: no fever Respiratory: + cough, + dyspnea and + dyspnea on exertion Physical Exam Physical Exam: General: well developed, well nourished, morbidly obese female, ill appearing, diaphoretic Neck: supple, trachea midline, normal thyroid Lungs: clear to auscultation bilaterally, tachypneic, slight accessory muscle use, no respiratory distress Heart: regular S1 and S2, no murmur, peripheral pulses normal, capillary refill normal, no edema Abdomen: soft, NT, ND, + BS, no hepatomegaly, normal to percussion Extremities: normal in appearance, no cyanosis, no petechiae, strength is 5/5 bilaterally Neuro: awake, cooperative, moves all extremities, no focal motor deficits, CN II-XII intact, sensation in extremities intact, normal speech Skin: warm, dry, no rash, normal turgor Psych: Awake, alert oriented x 3, calm and cooperative Results & Data Results & Data ([facility]) Vital Signs (Past 12 Hours) Vital Signs Temp Pulse Pulse Resp BP BP Pulse Ox 06/20/21 09:19 92 H 32 H 93 06/20/21 07:26 36.9 C 81 22 129/77 92 06/20/21 03:59 38.3 C H 80 20 120/73 95 06/20/21 03:51 80 28 H 92 06/20/21 02:00 110 H 30 H 88 L 06/19/21 23:59 105 H 06/19/21 23:02 37.3 C 101 H 24 143/68 H 90 06/19/21 23:00 37.3 C 101 H 24 143/68 H 90 06/19/21 22:40 108 H 30 H 91 06/19/21 22:20 92 H 22 176/95 H Laboratory Results Laboratory Results - last 24 hr 06/19/21 06/19/21 06/19/21 17:18 17:18 17:18 WBC 5.72 RBC 4.22 Hgb 12.7 Hct 36.7 L MCV 87.0 MCH 30.1 MCHC 34.6 RDW Std Deviation 44.2 RDW Coeff of Jose Rafael 13.8 Plt Count 286 MPV 9.8 Immature Gran % (Auto) 0.9 Neut % (Auto) 80.8 Lymph % (Auto) 10.8 [place] % (Auto) 7.3 Eos % (Auto) 0.0 Baso % (Auto) 0.2 Neut # (Auto) 4.62 Lymph # (Auto) 0.62 L [place] # (Auto) 0.42 Eos # (Auto) 0.00 Baso # (Auto) 0.01 Immature Gran # (Auto) 0.05 H PT 10.7 INR 1.1 APTT 29.6 PTT Ratio 1.1 ABG pH ABG pCO2 ABG pO2 ABG HCO3 ABG O2 Saturation ABG Base Excess Jaskaran Test VBG pH 7.51 H VBG pCO2 44 VBG pO2 32 VBG HCO3 35 VBG O2 Saturation 66.2 VBG Base Excess 10.4 Barometric Pressure 736.1 Oxygen Given Sodium Potassium Chloride Carbon Dioxide Anion Gap BUN Creatinine Est Cr Clr Drug Dosing Est GFR ( Amer) Est GFR (Non-Af Amer) BUN/Creatinine Ratio Glucose Lactate Calcium Magnesium Total Bilirubin AST ALT Alkaline Phosphatase Total Creatine Kinase Troponin I C-Reactive Protein Total Protein Albumin Globulin Albumin/Globulin Ratio Procalcitonin Urine Color Urine Appearance Urine pH Ur Specific [place] Urine Protein Urine Glucose (UA) Urine Ketones Urine Blood Urine Nitrite Urine Bilirubin Urine Urobilinogen Ur Leukocyte Esterase Urine WBC (Auto) Urine RBC (Auto) U Hyaline Cast (Auto) U Epithel Cells (Auto) Urine Bacteria (Auto) Ur Renal Epithelial Cell Nasal Screen MRSA (PCR) COVID-19 Eval Order SARS-CoV-2 (PCR) 06/19/21 06/19/21 06/19/21 17:18 17:18 17:18 WBC RBC Hgb Hct MCV MCH MCHC RDW Std Deviation RDW Coeff of Jose Rafael Plt Count MPV Immature Gran % (Auto) Neut % (Auto) Lymph % (Auto) [place] % (Auto) Eos % (Auto) Baso % (Auto) Neut # (Auto) Lymph # (Auto) [place] # (Auto) Eos # (Auto) Baso # (Auto) Immature Gran # (Auto) PT INR APTT PTT Ratio ABG pH ABG pCO2 ABG pO2 ABG HCO3 ABG O2 Saturation ABG Base Excess Jaskaran Test VBG pH VBG pCO2 VBG pO2 VBG HCO3 VBG O2 Saturation VBG Base Excess Barometric Pressure Oxygen Given Sodium 135 L Potassium 2.8 L Chloride 95 L Carbon Dioxide 32 Anion Gap 8.0 BUN 10 Creatinine 0.75 Est Cr Clr Drug Dosing Not Reportable Est GFR ( Amer) 118.0 Est GFR (Non-Af Amer) 101.8 BUN/Creatinine Ratio 13.1 Glucose 168 H Lactate 1.9 Calcium 8.5 Magnesium 2.6 H Total Bilirubin 0.5 AST 42 H ALT 33 Alkaline Phosphatase 66 Total Creatine Kinase 308 H Troponin I < 0.015 C-Reactive Protein Total Protein 7.8 Albumin 2.6 L Globulin 5.2 H Albumin/Globulin Ratio 0.5 L Procalcitonin 37.58 H Urine Color Urine Appearance Urine pH Ur Specific [place] Urine Protein Urine Glucose (UA) Urine Ketones Urine Blood Urine Nitrite Urine Bilirubin Urine Urobilinogen Ur Leukocyte Esterase Urine WBC (Auto) Urine RBC (Auto) U Hyaline Cast (Auto) U Epithel Cells (Auto) Urine Bacteria (Auto) Ur Renal Epithelial Cell Nasal Screen MRSA (PCR) COVID-19 Eval Order SARS-CoV-2 (PCR) 06/19/21 06/19/21 06/19/21 17:18 20:28 20:28 WBC RBC Hgb Hct MCV MCH MCHC RDW Std Deviation RDW Coeff of Jose Rafael Plt Count MPV Immature Gran % (Auto) Neut % (Auto) Lymph % (Auto) [place] % (Auto) Eos % (Auto) Baso % (Auto) Neut # (Auto) Lymph # (Auto) [place] # (Auto) Eos # (Auto) Baso # (Auto) Immature Gran # (Auto) PT INR APTT PTT Ratio ABG pH ABG pCO2 ABG pO2 ABG HCO3 ABG O2 Saturation ABG Base Excess Jaskaran Test VBG pH VBG pCO2 VBG pO2 VBG HCO3 VBG O2 Saturation VBG Base Excess Barometric Pressure Oxygen Given Sodium Potassium Chloride Carbon Dioxide Anion Gap BUN Creatinine Est Cr Clr Drug Dosing Est GFR ( Amer) Est GFR (Non-Af Amer) BUN/Creatinine Ratio Glucose Lactate Calcium Magnesium Total Bilirubin AST ALT Alkaline Phosphatase Total Creatine Kinase Cancelled Troponin I C-Reactive Protein Total Protein Albumin Globulin Albumin/Globulin Ratio Procalcitonin Urine Color Dark Yellow Urine Appearance Clear Urine pH 6.5 Ur Specific [place] > 1.045 H Urine Protein 3+ H Urine Glucose (UA) Negative Urine Ketones Negative Urine Blood 3+ H Urine Nitrite Negative Urine Bilirubin Negative Urine Urobilinogen Negative Ur Leukocyte Esterase Negative Urine WBC (Auto) 10-30 H Urine RBC (Auto) >30 H U Hyaline Cast (Auto) 0 U Epithel Cells (Auto) >30 H Urine Bacteria (Auto) 1+ H Ur Renal Epithelial Cell Not Reportable Nasal Screen MRSA (PCR) COVID-19 Eval Order Covid19 at [facility] SARS-CoV-2 (PCR) 06/19/21 06/19/21 06/20/21 20:28 20:28 01:00 WBC RBC Hgb Hct MCV MCH MCHC RDW Std Deviation RDW Coeff of Jose Rafael Plt Count MPV Immature Gran % (Auto) Neut % (Auto) Lymph % (Auto) [place] % (Auto) Eos % (Auto) Baso % (Auto) Neut # (Auto) Lymph # (Auto) [place] # (Auto) Eos # (Auto) Baso # (Auto) Immature Gran # (Auto) PT INR APTT PTT Ratio ABG pH 7.53 H* ABG pCO2 34 L ABG pO2 98 H ABG HCO3 28 H ABG O2 Saturation 95.5 H ABG Base Excess 5.5 H Jaskaran Test Pos VBG pH VBG pCO2 VBG pO2 VBG HCO3 VBG O2 Saturation VBG Base Excess Barometric Pressure 737.1 Oxygen Given 70% Sodium Potassium Chloride Carbon Dioxide Anion Gap BUN Creatinine Est Cr Clr Drug Dosing Est GFR ( Amer) Est GFR (Non-Af Amer) BUN/Creatinine Ratio Glucose Lactate Calcium Magnesium Total Bilirubin AST ALT Alkaline Phosphatase Total Creatine Kinase Troponin I C-Reactive Protein Total Protein Albumin Globulin Albumin/Globulin Ratio Procalcitonin Urine Color Urine Appearance Urine pH Ur Specific [place] Urine Protein Urine Glucose (UA) Urine Ketones Urine Blood Urine Nitrite Urine Bilirubin Urine Urobilinogen Ur Leukocyte Esterase Urine WBC (Auto) Urine RBC (Auto) U Hyaline Cast (Auto) U Epithel Cells (Auto) Urine Bacteria (Auto) Ur Renal Epithelial Cell Nasal Screen MRSA (PCR) Negative COVID-19 Eval Order SARS-CoV-2 (PCR) POSITIVE A* 06/20/21 06/20/21 06/20/21 01:36 06:42 06:42 WBC RBC Hgb Hct MCV MCH MCHC RDW Std Deviation RDW Coeff of Jose Rafael Plt Count MPV Immature Gran % (Auto) Neut % (Auto) Lymph % (Auto) [place] % (Auto) Eos % (Auto) Baso % (Auto) Neut # (Auto) Lymph # (Auto) [place] # (Auto) Eos # (Auto) Baso # (Auto) Immature Gran # (Auto) PT INR APTT PTT Ratio ABG pH ABG pCO2 ABG pO2 ABG HCO3 ABG O2 Saturation ABG Base Excess Jaskaran Test VBG pH VBG pCO2 VBG pO2 VBG HCO3 VBG O2 Saturation VBG Base Excess Barometric Pressure Oxygen Given Sodium 132 L 135 L Potassium 3.2 L 3.0 L Chloride 96 L 98 Carbon Dioxide 31 28 Anion Gap 5.0 9.0 BUN 11 10 Creatinine 0.72 0.56 L Est Cr Clr Drug Dosing 170.9 221.2 Est GFR ( Amer) 124.0 138.1 Est GFR (Non-Af Amer) 107.0 119.1 BUN/Creatinine Ratio 14.7 17.7 Glucose 175 H 154 H Lactate Calcium 7.8 L 7.9 L Magnesium Total Bilirubin 0.5 AST 36 ALT 26 Alkaline Phosphatase 52 Total Creatine Kinase Troponin I C-Reactive Protein 15.00 H Total Protein 6.8 Albumin 2.1 L Globulin 4.7 H Albumin/Globulin Ratio 0.4 L Procalcitonin Urine Color Urine Appearance Urine pH Ur Specific [place] Urine Protein Urine Glucose (UA) Urine Ketones Urine Blood Urine Nitrite Urine Bilirubin Urine Urobilinogen Ur Leukocyte Esterase Urine WBC (Auto) Urine RBC (Auto) U Hyaline Cast (Auto) U Epithel Cells (Auto) Urine Bacteria (Auto) Ur Renal Epithelial Cell Nasal Screen MRSA (PCR) COVID-19 Eval Order SARS-CoV-2 (PCR) Medications Administered Current Inpatient Medications Albuterol (Albuterol Hfa 8 Gm Inhaler) 1 puffs INH Q4H PRN PRN Reason: SOB/WHEEZING Stop: 07/19/21 23:02 Enoxaparin Sodium (Enoxaparin 80 Mg/0.8 Ml Syr) 70 mg SQ Q12 TIFFANI Stop: 07/20/21 10:59 Guaifenesin (Guaifenesin 600 Mg Tabcr) 1,200 mg PO BID TIFFANI Stop: 07/19/21 22:54 Last Admin: 06/20/21 08:24 Dose: 1,200 mg Documented by: Hydroxyzine HCl (Hydroxyzine Hcl 25 Mg Tab) 25 mg PO TID PRN PRN Reason: anxiety Stop: 07/19/21 22:54 Potassium Chloride 40 meq/ (Sodium Chloride) 1,020 mls @ 125 mls/hr IV .Q8H10M TIFFANI Stop: 07/19/21 18:29 Last Admin: 06/20/21 07:16 Dose: 125 mls/hr Documented by: Lorazepam (Ativan) 0.5 mg in 1 mls @ 0.5 mls/min IV Q3H PRN PRN Reason: Anxiety Stop: 07/19/21 21:21 Last Admin: 06/19/21 23:27 Dose: 0.5 mls/min Documented by: Dexamethasone 6 mg/ Syringe 1.5 mls @ 1 mls/min IV DAILY [facility] Stop: 06/30/21 08:59 Last Admin: 06/20/21 08:23 Dose: 1 mls/min Documented by: Azithromycin 250 mg/ Dextrose 252.5 mls @ 125 mls/hr IV Q24H [facility] Stop: 06/27/21 00:00 Last Infusion: 06/20/21 03:43 Dose: Infused Documented by: Cefepime HCl 2,000 mg/ Syringe 20 mls @ 5 mls/min IV Q8H [facility]; Protocol Stop: 06/27/21 00:00 Last Admin: 06/20/21 08:23 Dose: 5 mls/min Documented by: Remdesivir 100 mg/ Sodium (Chloride) 250 mls @ 250 mls/hr IV Q24H [facility]; Protocol Stop: 06/23/21 20:59 Vancomycin HCl 1,500 mg/ (Sodium Chloride) 530 mls @ 200 mls/hr IV Q12H [facility] Stop: 06/27/21 13:59 Ipratropium Reading (Ipratropium Reading Hfa Inhaler) 1 puffs INH Q4H PRN PRN Reason: SOB/WHEEZING Stop: 07/19/21 23:02 Miscellaneous Information (Vancomycin Consult Active) 1 ea N/A UD PRN PRN Reason: Consult Stop: 07/19/21 23:08 Nitroglycerin (Nitroglycerin Sl 0.4 Mg/Tab Tab) 0.4 mg SL UD PRN PRN Reason: Chest Pain Stop: 07/19/21 22:54 Ondansetron HCl (Ondansetron Inj 2 Mg/Ml 2 Ml Vial) 4 mg IV Q6H PRN PRN Reason: Nausea Stop: 07/19/21 22:54 Sodium Chloride (Sodium Chloride 0.9% 10ml Flush) 30 ml IV Q24H [facility]FFANI Stop: 06/23/21 21:01 Venlafaxine HCl (Venlafaxine Hcl Xr 150 Mg Capxr) 150 mg PO DAILY [facility]FFANI Stop: 07/20/21 08:59 Last Admin: 06/20/21 08:23 Dose: 150 mg Documented by: PG Care Time/CCT Total # of Minutes Spent Total Time Spent with Patient: Total time spent is greater than 50% in coordination of care (as documented) at patient's floor/unit and/or counseling patient: Coding Level of Care Code 01740 Subseq Hosp Care Lvl 3 Diagnoses 2019 novel coronavirus-infected pneumonia (NCIP) U07.1; J12.82 Acute hypokalemia E87.6 GERD (gastroesophageal reflux disease) K21.9 Vitamin D deficiency E55.9 Anxiety F41.9 Acute respiratory failure due to COVID-19 U07.1; J96.00 Hypoxia R09.02 Bacterial pneumonia J15.9
[2021-06-20] MEDS ORDERED: FUROSEMIDE INJ 20 MG/2 ML VIAL IV ONE (10:09)
[2021-06-20] MEDS: LORazepam 0.5 MG/1 ML VIAL IV PRN ×2 (10:35→21:10)
--- NOTE | 2021-06-20 10:58 | Pulmonary Consultation ---
Date of Consultation June 20, 2021 Assessment & Plan (1) Acute respiratory failure due to COVID-19: (2) Hypoxia: (3) Obesity: Impression: 35-year-old female partially vaccinated against Covid now with Covid pneumonitis and questionable bacterial superinfection. Her procalcitonin was significantly elevated however her white count is normal. She has been afebrile. Recommendations: 1. Hypoxemic respiratory failure: Continue supplemental oxygen via heated high flow. The patient was encouraged to prone or at least try the lateral decubitus position is much as possible. If she fails would attempt noninvasive positive pressure ventilation. She is at risk for progressive respiratory failure and intubation. 2. Covid pneumonitis: Continue dexamethasone 6 mg daily. Risks and benefits of other immune modulators such as baricitinib were discussed with the patient. Given her elevated procalcitonin, possibility exists for an underlying bacterial infection which could potentially be worsened by concomitant administration of baricitinib. Nevertheless risk-benefit ratio appears to favor treatment at this point time. Discussed with pharmacy. Will initiate baricitinib therapy and follow. 3. Possible bacterial pneumonia: MRSA swabs negative. Discontinue vancomycin. Continue cefepime and azithromycin. Repeat procalcitonin in the morning. Can likely de-escalate antimicrobial therapy over the next 24 to 48 hours depending on clinical response. Okay to transition azithromycin to oral 4. Questionable history of PE. Without being able to independently reviewed the patient's prior CT scans from [place], I would not recommend empiric anticoagulation. There was no obvious filling defect identified on the current film. Current guidelines would recommend anticoagulation according to ACC P guidelines and there is no data to support increased higher intensity anticoagulation currently.. Decrease to 30 mg every 12 Management patient's other medical issues is deferred to the primary admitting service. We will follow with you. Feel free to contact us with questions or concerns. The patient is critically ill at this point time and a total of 40 minutes critical care time was spent in evaluation management and stabilization of this patient including discussion with pharmacist, hospitalist, and patient at bedside History of Present Illness Attending Physician: Archie Lewis, DO History of Present Illness Asked by hospitalist to evaluate this patient admitted with Covid pneumonia and hypoxemic respiratory failure. History is obtained from review the electronic medical record, discussion with the hospitalist, and review of the with the patient at bedside. Patient is a 35-year-old female who received her first dose of the Covid vaccine in May. She has a somewhat convoluted course. She is morbidly obese. She was initially diagnosed with Covid June 10. In [place] they did a CT scan which showed PE and the patient was placed on anticoagulant and discharged home. She was seen back in [place] ER June [address] scan. Anticoagulation was stopped at that point time. She was placed on oral Decadron. She presented to our emergency room complaining of weakness chest pain cough fever nausea and vomiting. In the emergency room. She had repeat CT scan performed demonstrating patchy parenchymal opacities. Her procalcitonin was elevated. She was treated with vancomycin and cefepime. Her MRSA swabs were negative. Patient seen and examined in her room. She is awake. She is tachypneic with mild increased work of breathing. She is coughing and expectorating some phlegm. No chest pain. Allergies Allergy/AdvReac Type Severity Reaction Status Date / Time No Known Allergies Allergy Mild Unverified 06/19/21 15:42 Home Medications Medication Instructions Recorded Confirmed Type naproxen 500 mg tablet 500 mg PO Q12H PRN tab 03/14/21 06/19/21 History hydroxyzine HCl 25 mg tablet 25 mg PO TID PRN #30 tab 03/18/21 06/19/21 Rx omeprazole 20 mg tablet,delayed 20 mg PO DAILY #30 tab 04/05/21 06/19/21 Rx release venlafaxine 75 mg capsule,extended 150 mg PO DAILY 30 Days #60 cap 05/15/21 06/19/21 Rx release 24 hr dexamethasone 6 mg tablet 6 mg PO DAILY 7 Days #7 tab 06/17/21 06/19/21 Rx apixaban 5 mg (74 tabs) tablets in 5 mg PO DAILY 06/19/21 06/19/21 History a dose pack (Eliquis) Patient History Medical History (Updated 06/20/21 @ 10:51 by Ulysses Thomas MD) Anxiety COVID Depression GERD (gastroesophageal reflux disease) History of pneumonia Migraine headache Vitamin D deficiency Surgical History H/O tubal ligation S/P right knee arthroscopy Family History Father Diabetes Mother No problems noted. Denies family history of Ovarian cancer Prostate cancer Myocardial infarction Breast cancer Colorectal cancer Cancer Social History Smoking Status: Former smoker Tobacco Type: E-cigarettes / Vaping Age Started Using Tobacco: 19; Age Quit Using Tobacco: 33; packs per day: 0.5; Years Smoked: 3; Second Hand Exposure: Yes; Hx Alcohol Use: Yes Alcohol type: beer and wine Alcohol Intake Frequency: Monthly or Less Hx Substance Use: No Preferred Language: German Communication Ability: Effective Visual Impairment: No Limitations Hearing Ability: Normal [place] Worker Required: No Beliefs That Will Affect Care: None marital status: Current Living Situation: Family Current Living Situation Comment: Lives with at home current occupational status: employed current occupation: works at [employer] How many Children do You have: 2 Other Information That Helps Us Care for You: No Feels Safe at Home: Yes Safety Concerns: Feels Safe At This Time Childhood Exposure to Second-Hand Smoke: Yes caffeine: Yes during the past year weight has: remained stable Dental Care, Regularly: Yes Physical Activity Frequency: Does not Exercise Physical Activity Frequency Comment: 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 No additions or deletions Physical Exam Physical Exam: General: well developed, well nourished, morbidly obese female, ill appearing, diaphoretic Neck: supple, trachea midline, normal thyroid Lungs: clear to auscultation bilaterally, tachypneic, slight accessory muscle use, no respiratory distress Heart: regular S1 and S2, no murmur, peripheral pulses normal, capillary refill normal, no edema Abdomen: soft, NT, ND, + BS, no hepatomegaly, normal to percussion Extremities: normal in appearance, no cyanosis, no petechiae, strength is 5/5 bi laterally Neuro: awake, cooperative, moves all extremities, no focal motor deficits, CN II-XII intact, sensation in extremities intact, normal speech Skin: warm, dry, no rash, normal turgor Psych: Awake, alert oriented x 3, calm and cooperative Results & Data Results & Data ([facility]) Vital Signs (Past 12 Hours) Vital Signs Temp Pulse Pulse Resp BP Pulse Ox 06/20/21 09:19 92 H 32 H 93 06/20/21 07:26 36.9 C 81 22 129/77 92 06/20/21 03:59 38.3 C H 80 20 120/73 95 06/20/21 03:51 80 28 H 92 06/20/21 02:00 110 H 30 H 88 L 06/19/21 23:59 105 H 06/19/21 23:02 37.3 C 101 H 24 143/68 H 90 06/19/21 23:00 37.3 C 101 H 24 143/68 H 90 Laboratory Results 06/19/21 17:18 06/20/21 06:42 CRP 15 Procalcitonin 37 06/19/21 06/19/21 17:18 20:28 ABG pH 7.53 H* ABG pCO2 34 L ABG pO2 98 H ABG HCO3 28 H ABG O2 Saturation 95.5 H ABG Base Excess 5.5 H VBG pH 7.51 H VBG pCO2 44 VBG pO2 32 VBG HCO3 35 VBG O2 Saturation 66.2 VBG Base Excess 10.[address] angiogram independently reviewed. CT ANGIOGRAPHY OF THE CHEST, PULMONARY EMBOLUS PROTOCOL CLINICAL HISTORY: Shortness of breath. Covid. COMPARISON STUDY: Chest radiograph performed earlier today. TECHNIQUE: Following IV administration of 120 mL of Optiray, helical axial images of the chest were obtained utilizing the pulmonary embolus protocol. Maximal intensity projections and sagittal and coronal reformats were viewed on an independent 3D workstation. IV contrast was administered without complication. Automated exposure control was utilized for the study. A dose lowering technique was utilized adhering to the principles of ALARA. CT DOSE: 845.92 mGy.cm FINDINGS: No pulmonary emboli are identified although segmental and subsegmental pulmonary arteries are suboptimally assessed due to artifact on t his exam. Mild cardiomegaly is noted. There is no pericardial effusion. Prominent mediastinal and hilar lymph nodes are likely reactive. Probable small hiatal hernia is noted. No pneumothorax is present. Trace bilateral pleural effusions are noted. Extensive bilateral airspace opacities throughout the lungs are noted. Central airways are patent. No acute fracture or suspicious lesion is identified within visualized portions of the bony thorax. There is mild splenomegaly. Probable hepatic steatosis is noted. IMPRESSION: 1. No pulmonary emboli identified although this exam is moderately compromised by artifact, as described above. 2. Extensive bilateral airspace opacities suggestive of viral pneumonia. 3. Mild cardiomegaly. 4. Trace bilateral pleural effusions. PG Care Time/CCT Total # of Minutes Spent Total Time Spent with Patient: Total time spent is greater than 50% in coordination of care (as documented) at patient's floor/unit and/or counseling patient: Coding Level of Care Code Critical Care 1st 30-74 mins Diagnoses Acute respiratory failure due to COVID-19 U07.1; J96.00 Hypoxia R09.02 Obesity E66.9 Time Spent (min) 40
[2021-06-20] MEDS ORDERED: ENOXAPARIN 80 MG/0.8 ML SYR SQ SCH (11:00)
[2021-06-20] MEDS: 4 mg Once Daily x14 days PO SCH (12:46)
[2021-06-20] MEDS: POTASSIUM CHLORIDE CRTAB 20 MEQ TABCR PO SCH ×2 (12:46→20:26)
[2021-06-20] MEDS ORDERED: VANCOMYCIN HCL 1,500 MG in SODIUM CHLORIDE 0.9% 500 ML IV SCH (14:00)
--- NOTE | 2021-06-20 19:36 | Electrocardiogram Report ---
Test Reason : Blood Pressure : / mmHG Vent. Rate : 092 BPM Atrial Rate : 092 BPM P-R Int : 140 ms QRS Dur : 100 ms QT Int : 374 ms P-R-T Axes : 035 -21 012 degrees QTc Int : 462 ms Normal sinus rhythm Moderate voltage criteria for LVH, may be normal variant Borderline ECG No previous ECGs available Confirmed by Janes Rebollar ([id number]) on 06/20/2021 7:36:04 PM Referred By: REFERRED SELF Confirmed By:Janes Rebollar
[2021-06-20] MEDS ORDERED: REMDESIVIR 100 MG in SODIUM CHLORIDE 0.9% 230 ML IV SCH (20:00)
--- NOTE | 2021-06-20 20:01 | Billing Data ---
Date of Service June 20, 2021 Coding Level of Care Code 07223 Initial Inpt Care Lvl 3
[2021-06-20] MEDS: ENOXAPARIN INJ 30 MG/0.3 ML SYR SQ SCH (20:25)
[2021-06-20] MEDS: ONDANSETRON INJ 2 MG/ML 2 ML VIAL IV PRN (21:11)
[2021-06-21] MEDS: CEFEPIME 2,000 MG in SYRINGE 0 ML IV SCH ×2 (00:26→08:09)
[2021-06-21 07:35] LABS: Albumin Level 2.3 gm/dl (3.4-5.0); Calcium 8.8 mg/dl (8.5-10.1); Creatinine Clr Calc Pharmacy 196.6 ml/min; Est GFR (African American) 132.8 ml/min; Est GFR (Non-African American) 114.6 ml/min; Potassium 3.1 mmol/L (3.5-5.1)
[2021-06-21 07:38] LABS: Albumin Globulin Ratio 0.5 (0.9-2); Bilirubin,Total 0.5 mg/dl (0.2-1); C Reactive Protein 8.01 mg/dl (0-0.29); Globulin 4.8 gm/dl (2.5-4.0); Total Protein 7.1 gm/dl (6.4-8.2)
[2021-06-21] MEDS: dexAMETHasone 6 MG in SYRINGE 0 ML IV SCH (08:03)
[2021-06-21] MEDS: ENOXAPARIN INJ 30 MG/0.3 ML SYR SQ SCH ×2 (08:03→20:42)
[2021-06-21] MEDS: ONDANSETRON INJ 2 MG/ML 2 ML VIAL IV PRN (08:03)
[2021-06-21] MEDS: LORazepam 0.5 MG/1 ML VIAL IV PRN ×2 (08:03→14:49)
[2021-06-21] MEDS: POTASSIUM CHLORIDE CRTAB 20 MEQ TABCR PO SCH ×3 (08:04→20:42)
[2021-06-21] MEDS: hydrOXYzine HCl 25 MG TAB PO PRN (08:04)
[2021-06-21] MEDS: guaiFENesin 600 MG TABCR PO SCH ×2 (08:04→20:42)
[2021-06-21] MEDS: AZITHROMYCIN 250 MG TAB PO SCH (08:05)
[2021-06-21] MEDS: VENLAFAXINE HCL XR 150 MG CAPXR PO SCH (08:05)
[2021-06-21] MEDS: 4 mg Once Daily x14 days PO SCH (08:09)
[2021-06-21] MEDS: FUROSEMIDE INJ 20 MG/2 ML VIAL IV SCH (08:09)
[2021-06-21] MEDS ORDERED: traMADol HCL 50 MG TABLET PO PRN (09:26)
--- NOTE | 2021-06-21 09:26 | Hospitalist Progress Note ---
Date of Service June 21, 2021 Assessment & Plan (1) 2019 novel coronavirus-infected pneumonia (NCIP): Plan: tested positive on 06/10, diagnosed at [facility] progressed to the point of needing oxygen, worsening hypoxia, came to [facility] on 06/19 CTA chest shows diffuse, bilateral infiltrates, no evidence of pulmonary emboli dexamethasone 6mg IV daily, day 3 start baricitinib given CRP of 15 and on high flow nasal canula already, day 3, CRP down to 8 prone as much as possible, will place zhang and give Lasix 20mg IV, great response continue Vapotherm, currently on 30L and 70%, try to titrate down further appreciate consult from Dr. Thomas, will continue to discuss with him (2) Acute respiratory failure due to COVID-19: Plan: requiring 30L and 70%, saturations improve a lot with prone position give Ativan for anxiety to help her sleep give Ultram and/or morphine for low back pain treatment of COVID with dexamethasone and baricitinib (3) Hypoxia: Plan: acute hypoxic respiratory failure see above (4) Bacterial pneumonia: Plan: procalcitonin in the 30's stop Vanco as MRSA swab negative continue Zithromax and Cefepime for 5-7 days repeat procalcitonin tomorrow (5) Acute hypokalemia: Plan: K s 3.1, will increase KCl to 40 TID (6) GERD (gastroesophageal reflux disease): (7) Vitamin D deficiency: (8) Anxiety: Plan: ativan PRN Plan: continue treatment, continue to prone as much as possible Admission and Anticipated Discharge Date Admission Date: June 19, 2021 Subjective patient laying prone this morning, she says her lower back hurts, difficult for her to lay in this position I encouraged her to keep doing it, her oxygen levels are great, she is 95-96% on 30L and 70% which is less than she required yesterday CRP down to 8, K is 3.1, will increase KCl to 40 TID minimal cough, no chest pain, no nausea, no fever she is anxious but got a dose of Ativan and it helped a lot Review of Systems Review of Systems: All systems reviewed & are unremarkable except as noted in Subjective Respiratory: + dyspnea and + dyspnea on exertion Cardiovascular: no chest pain Gastrointestinal: no abdominal pain, no nausea, no vomiting, no constipation and no diarrhea/loose stools Musculoskeletal: + back pain Physical Exam Physical Exam: General: well developed, well nourished, morbidly obese female, ill appearing, diaphoretic Neck: supple, trachea midline, normal thyroid Lungs: clear to auscultation bilaterally, tachypneic, slight accessory muscle use, no respiratory distress Heart: regular S1 and S2, no murmur, peripheral pulses normal, capillary refill normal, no edema Abdomen: soft, NT, ND, + BS, no hepatomegaly, normal to percussion Extremities: normal in appearance, no cyanosis, no petechiae, strength is 5/5 bilaterally Neuro: awake, cooperative, moves all extremities, no focal motor deficits, CN II-XII intact, sensation in extremities intact, normal speech Skin: warm, dry, no rash, normal turgor Psych: Awake, alert oriented x 3, calm and cooperative Results & Data Results & Data ([facility]) Vital Signs (Past 12 Hours) Vital Signs Temp Pulse Pulse Resp BP BP Pulse Ox 06/21/21 07:50 88 32 H 94 06/21/21 07:33 37.3 C 71 24 143/82 H 93 06/21/21 05:24 36.8 C 81 16 155/85 H 92 06/21/21 05:23 74 06/21/21 05:20 81 20 93 06/21/21 03:59 37.0 C 89 21 129/84 95 06/21/21 02:08 80 28 H 90 06/21/21 00:01 36.9 C 82 20 136/90 89 L 06/20/21 23:08 73 24 93 Laboratory Results Laboratory Results - last 24 hr 06/21/21 06:31 Sodium 136 Potassium 3.1 L Chloride 99 Carbon Dioxide 33 H Anion Gap 4.0 BUN 16 D Creatinine 0.63 Est Cr Clr Drug Dosing 196.6 Est GFR ( Amer) 132.8 Est GFR (Non-Af Amer) 114.6 BUN/Creatinine Ratio 25.0 H Glucose 126 H Calcium 8.8 Total Bilirubin 0.5 AST 45 H ALT 36 Alkaline Phosphatase 49 C-Reactive Protein 8.01 H Total Protein 7.1 Albumin 2.3 L Globulin 4.8 H Albumin/Globulin Ratio 0.5 L Medications Administered Current Inpatient Medications Albuterol (Albuterol Hfa 8 Gm Inhaler) 1 puffs INH Q4H PRN PRN Reason: SOB/WHEEZING Stop: 07/19/21 23:02 Azithromycin (Azithromycin 250 Mg Tab) 250 mg PO QAM [facility] Stop: 06/26/21 09:01 Last Admin: 06/21/21 08:05 Dose: 250 mg Documented by: Baricitinib (4 Mg Once Daily X14 Days) 4 mg PO DAILY [facility]; Protocol Stop: 07/04/21 10:59 Last Admin: 06/21/21 08:09 Dose: 4 mg Documented by: Enoxaparin Sodium (Enoxaparin Inj 30 Mg/0.3 Ml Syr) 30 mg SQ Q12 [facility] Stop: 07/20/21 20:59 Last Admin: 06/21/21 08:03 Dose: 30 mg Documented by: Furosemide (Furosemide Inj 20 Mg/2 Ml Vial) 20 mg IV QAM [facility]FF[facility] Stop: 07/21/21 08:59 Last Admin: 06/21/21 08:09 Dose: 20 mg Documented by: Guaifenesin (Guaifenesin 600 Mg Tabcr) 1,200 mg PO BID [facility] Stop: 07/19/21 22:54 Last Admin: 06/21/21 08:04 Dose: 1,200 mg Documented by: Hydroxyzine HCl (Hydroxyzine Hcl 25 Mg Tab) 25 mg PO TID PRN PRN Reason: anxiety Stop: 07/19/21 22:54 Last Admin: 06/21/21 08:04 Dose: 25 mg Documented by: Lorazepam (Ativan) 0.5 mg in 1 mls @ 0.5 mls/min IV Q3H PRN PRN Reason: Anxiety Stop: 07/19/21 21:21 Last Admin: 06/21/21 08:03 Dose: 0.5 mls/min Documented by: Dexamethasone 6 mg/ Syringe 1.5 mls @ 1 mls/min IV DAILY [facility] Stop: 06/30/21 08:59 Last Admin: 06/21/21 08:03 Dose: 1 mls/min Documented by: Cefepime HCl 2,000 mg/ Syringe 20 mls @ 5 mls/min IV Q8H [facility]; Protocol Stop: 06/27/21 00:00 Last Admin: 06/21/21 08:09 Dose: 5 mls/min Documented by: Ipratropium [place] (Ipratropium [place] Hfa Inhaler) 1 puffs INH Q4H PRN PRN Reason: SOB/WHEEZING Stop: 07/19/21 23:02 Morphine Sulfate (Morphine Sulfate 2 Mg/Ml Carp) 2 mg IV Q4H PRN PRN Reason: Pain Stop: 07/05/21 09:25 Nitroglycerin (Nitroglycerin Sl 0.4 Mg/Tab Tab) 0.4 mg SL UD PRN PRN Reason: Chest Pain Stop: 07/19/21 22:54 Ondansetron HCl (Ondansetron Inj 2 Mg/Ml 2 Ml Vial) 4 mg IV Q6H PRN PRN Reason: Nausea Stop: 07/19/21 22:54 Last Admin: 06/21/21 08:03 Dose: 4 mg Documented by: Potassium Chloride (Potassium Chloride Crtab 20 Meq Tabcr) 40 meq PO TID [facility] Stop: 07/21/21 08:59 Last Admin: 06/21/21 08:04 Dose: 40 meq Documented by: Tramadol HCl (Tramadol Hcl 50 Mg Tablet) 50 mg PO Q4H PRN PRN Reason: Pain Stop: 07/21/21 09:25 Venlafaxine HCl (Venlafaxine Hcl Xr 150 Mg Capxr) 150 mg PO DAILY [facility] Stop: 07/20/21 08:59 Last Admin: 06/21/21 08:05 Dose: 150 mg Documented by: PG Care Time/CCT Total # of Minutes Spent Total Time Spent with Patient: Total time spent is greater than 50% in coordination of care (as documented) at patient's floor/unit and/or counseling patient: Coding Level of Care Code 79884 Subseq Hosp Care Lvl 3 Diagnoses 2019 novel coronavirus-infected pneumonia (NCIP) U07.1; J12.82 Acute respiratory failure due to COVID-19 U07.1; J96.00 Hypoxia R09.02 Bacterial pneumonia J15.9 Acute hypokalemia E87.6 GERD (gastroesophageal reflux disease) K21.9 Vitamin D deficiency E55.9 Anxiety F41.9
--- NOTE | 2021-06-21 10:55 | Pulmonology Progress Note ---
Date of Service June 21, 2021 Assessment & Plan (1) Acute respiratory failure due to COVID-19: (2) Hypoxia: (3) Obesity: Plan: Impression: 35-year-old female partially vaccinated against Covid now with Covid pneumonitis and questionable bacterial superinfection. Her procalcitonin was significantly elevated however her white count is normal. She has been afe brile. Recommendations: 1. Hypoxemic respiratory failure: Continue supplemental oxygen via heated high flow. The patient was encouraged to prone or at least try the lateral decubitus position is much as possible. If she fails would attempt noninvasive positive pressure ventilation. She is at risk for progressive respiratory failure and intubation but appears to be doing reasonably well currently. Agree with gentle diuresis as tolerated. 2. Covid pneumonitis: Continue dexamethasone 6 mg daily. Continue baricitinib. 3. Possible bacterial pneumonia: MRSA swabs negative. De-escalate from cefepime to Rocephin. Continue azithromycin. Repeat procalcitonin pending. Anticipate 5 days of antimicrobial therapy 4. Questionable history of PE. Without being able to independently reviewed the patient's prior CT scans from [place], I would not recommend empiric anticoagulation. There was no obvious filling defect identified on the current film. Continue DVT prophylaxis. Discussed with bedside ICU nurse and hospitalist at bedside. Pulmonary will sign off at this point time but feel free to contact us should the patient's clinical condition worsen or with any new respiratory questions Admission and Anticipated Discharge Date Admission Date: June 19, 2021 Subjective Seen and examined. EMR reviewed. Discussed with hospitalist. The patient is in the lateral decubitus position. Her oxygen requirement has stabilized or decreased slightly. She does not report any significant cough or chest pain. Her work of breathing is not problematic. She is tolerating diet. Review of Systems Review of Systems: All systems reviewed & are unremarkable except as noted in Subjective Physical Exam Constitutional: + morbidly obese; no acute distress Neck: trachea midline, no thyromegaly Respiratory: normal respiratory effort; no respiratory distress, no labored breathing, no cough and not tachypneic Auscultation: + crackles; no wheezes Cardiovascular: RRR, no murmur, no edema Gastrointestinal (Abdomen): normal bowel sounds, soft, nontender, no he patosplenomegaly Musculoskeletal: Extremities: extremities normal to inspection Skin: no rashes, warm and dry Neurologic: Nonfocal exam Lymphatic: no cervical lymphadenopathy Results & Data Results & Data ([facility]) Vital Signs (Past 12 Hours) Vital Signs Temp Pulse Pulse Resp BP BP Pulse Ox 06/21/21 07:50 88 32 H 94 06/21/21 07:33 37.3 C 71 24 143/82 H 93 06/21/21 05:24 36.8 C 81 16 155/85 H 92 06/21/21 05:23 74 06/21/21 05:20 81 20 93 06/21/21 03:59 37.0 C 89 21 129/84 95 06/21/21 02:08 80 28 H 90 06/21/21 00:01 36.9 C 82 20 136/90 89 L 06/20/21 23:08 73 24 93 Laboratory Results 06/19/21 17:18 06/21/21 06:31 Diagnostic Findings No new imaging PG Care Time/CCT Total # of Minutes Spent Total Time Spent with Patient: Total time spent is greater than 50% in coordination of care (as documented) at patient's floor/unit and/or counseling patient: Coding Level of Care Code 35942 Subseq Hosp Care Lvl 2 Diagnoses Acute respiratory failure due to COVID-19 U07.1; J96.00 Hypoxia R09.02 Obesity E66.9
[2021-06-21] MEDS: MoRPHine SULFATE 2 MG/ML CARP IV PRN (20:55)
[2021-06-22] MEDS ORDERED: VANCOMYCIN TROUGH ONE (01:30)
[2021-06-22] MEDS: LORazepam 0.5 MG/1 ML VIAL IV PRN (07:00)
[2021-06-22 07:03] LABS: BUN Creatinine Ratio 31.9 (10-20); Calcium 8.4 mg/dl (8.5-10.1); Est GFR (African American) 136.5 ml/min; Est GFR (Non-African American) 117.8 ml/min; Potassium 3.2 mmol/L (3.5-5.1)
[2021-06-22 07:05] LABS: C Reactive Protein 4.04 mg/dl (0-0.29)
[2021-06-22] MEDS: cefTRIAXone SODIUM 2,000 MG in DEXTROSE 5% 50 ML IV SCH (09:16)
[2021-06-22] MEDS: dexAMETHasone 6 MG in SYRINGE 0 ML IV SCH (09:16)
[2021-06-22] MEDS: FUROSEMIDE INJ 20 MG/2 ML VIAL IV SCH (09:17)
[2021-06-22] MEDS: guaiFENesin 600 MG TABCR PO SCH ×2 (09:17→20:39)
[2021-06-22] MEDS: POTASSIUM CHLORIDE CRTAB 20 MEQ TABCR PO SCH ×3 (09:17→20:39)
[2021-06-22] MEDS: ENOXAPARIN INJ 30 MG/0.3 ML SYR SQ SCH ×2 (09:17→20:38)
[2021-06-22] MEDS: 4 mg Once Daily x14 days PO SCH (09:19)
[2021-06-22] MEDS: hydrOXYzine HCl 25 MG TAB PO PRN (09:22)
[2021-06-22] MEDS: VENLAFAXINE HCL XR 150 MG CAPXR PO SCH (09:22)
[2021-06-22] MEDS: AZITHROMYCIN 250 MG TAB PO SCH (09:22)
--- NOTE | 2021-06-22 14:03 | Hospitalist Progress Note ---
Date of Service June 22, 2021 Assessment & Plan (1) 2019 novel coronavirus-infected pneumonia (NCIP): Plan: tested positive on 06/10, diagnosed at [facility] progressed to the point of needing oxygen, worsening hypoxia, came to [facility] on 06/19 CTA chest shows diffuse, bilateral infiltrates, no evidence of pulmonary emboli dexamethasone 6mg IV daily, day 4 start baricitinib given CRP of 15 and on high flow nasal canula already, day 4, CRP down to 4 today prone as much as possible, continue zhang and give Lasix 20mg IV qAM, great response continue Vapotherm, currently on 30L and 60%, making slight improvements each day appreciate consult from Dr. Thomas, will continue to discuss with him (2) Acute respiratory failure due to COVID-19: Plan: requiring 30L and 60%, saturations improve a lot with prone position give Ativan for anxiety to help her sleep give Ultram and/or morphine for low back pain treatment of COVID with dexamethasone and baricitinib (3) Hypoxia: Plan: acute hypoxic respiratory failure see above (4) Bacterial pneumonia: Plan: procalcitonin in the 30's stop Vanco as MRSA swab negative continue Zithromax and Cefepime for 5-7 days, day 4 today (5) Acute hypokalemia: Plan: K s 3.2, will continue KCl 40 TID (6) GERD (gastroesophageal reflux disease): (7) Vitamin D deficiency: (8) Anxiety: Plan: ativan PRN Plan: continue treatment, continue to prone as much as possible Admission and Anticipated Discharge Date Admission Date: June 19, 2021 Subjective patient continues to do well, no distress, she is stable on 30L and 60% while laying on her back, which is improvement eating more, able to take deep breaths, minimal cough, no chest pain encouraged her to continue to prone reviewed labs, CRP down and Cr stable, K is 3.2 Review of Systems Review of Systems: All systems reviewed & are unremarkable except as noted in Subjective Physical Exam Physical Exam: General: well developed, well nourished, morbidly obese female, ill appearing, diaphoretic Neck: supple, trachea midline, normal thyroid Lungs: clear to auscultation bilaterally, tachypneic, no accessory muscle use, no respiratory distress Heart: regular S1 and S2, no murmur, peripheral pulses normal, capillary refill normal, no edema Abdomen: soft, NT, ND, + BS, no hepatomegaly, normal to percussion Extremities: normal in appearance, no cyanosis, no petechiae, strength is 5/5 bilaterally Neuro: awake, cooperative, moves all extremities, no focal motor deficits, CN II-XII intact, sensation in extremities intact, normal speech Skin: warm, dry, no rash, normal turgor Psych: Awake, alert oriented x 3, calm and cooperative Results & Data Results & Data ([facility]) Vital Signs (Past 12 Hours) Vital Signs Temp Pulse Pulse Resp BP Pulse Ox 06/22/21 12:00 37.2 C 68 24 148/77 H 94 06/22/21 11:00 86 28 H 92 06/22/21 09:00 83 06/22/21 08:00 88 06/22/21 07:52 37.2 C 88 30 H 128/77 90 06/22/21 07:35 77 28 H 90 06/22/21 03:31 37.0 C 78 26 H 118/69 91 06/22/21 03:10 75 22 90 Laboratory Results Laboratory Results - last 24 hr 06/22/21 05:59 Sodium 136 Potassium 3.2 L Chloride 98 Carbon Dioxide 34 H Anion Gap 4.0 BUN 19 H Creatinine 0.58 L Est Cr Clr Drug Dosing 208.0 Est GFR ( Amer) 136.5 Est GFR (Non-Af Amer) 117.8 BUN/Creatinine Ratio 31.9 H Glucose 118 H Calcium 8.4 L C-Reactive Protein 4.04 H Medications Administered Current Inpatient Medications Albuterol (Albuterol Hfa 8 Gm Inhaler) 1 puffs INH Q4H PRN PRN Reason: SOB/WHEEZING Stop: 07/19/21 23:02 Azithromycin (Azithromycin 250 Mg Tab) 250 mg PO QAM [facility] Stop: 06/26/21 09:01 Last Admin: 06/22/21 09:22 Dose: 250 mg Documented by: Baricitinib (4 Mg Once Daily X14 Days) 4 mg PO DAILY [facility]; Protocol Stop: 07/04/21 10:59 Last Admin: 06/22/21 09:19 Dose: 4 mg Documented by: Enoxaparin Sodium (Enoxaparin Inj 30 Mg/0.3 Ml Syr) 30 mg SQ Q12 [facility] Stop: 07/20/21 20:59 Last Admin: 06/22/21 09:17 Dose: 30 mg Documented by: Furosemide (Furosemide Inj 20 Mg/2 Ml Vial) 20 mg IV QAM [facility] Stop: 07/21/21 08:59 Last Admin: 06/22/21 09:17 Dose: 20 mg Documented by: Guaifenesin (Guaifenesin 600 Mg Tabcr) 1,200 mg PO BID [facility] Stop: 07/19/21 22:54 Last Admin: 06/22/21 09:17 Dose: 1,200 mg Documented by: Hydroxyzine HCl (Hydroxyzine Hcl 25 Mg Tab) 25 mg PO TID PRN PRN Reason: anxiety Stop: 07/19/21 22:54 Last Admin: 06/22/21 09:22 Dose: 25 mg Documented by: Lorazepam (Ativan) 0.5 mg in 1 mls @ 0.5 mls/min IV Q3H PRN PRN Reason: Anxiety Stop: 07/19/21 21:21 Last Admin: 06/22/21 07:00 Dose: 0.5 mls/min Documented by: Dexamethasone 6 mg/ Syringe 1.5 mls @ 1 mls/min IV DAILY [facility] Stop: 06/30/21 08:59 Last Admin: 06/22/21 09:16 Dose: 1 mls/min Documented by: Ceftriaxone Sodium 2,000 mg/ (Dextrose) 70 mls @ 100 mls/hr IV DAILY [facility]; Protocol Stop: 06/29/21 08:59 Last Infusion: 06/22/21 10:01 Dose: Infused Documented by: Ipratropium [place] (Ipratropium [place] Hfa Inhaler) 1 puffs INH Q4H PRN PRN Reason: SOB/WHEEZING Stop: 07/19/21 23:02 Morphine Sulfate (Morphine Sulfate 2 Mg/Ml Carp) 2 mg IV Q4H PRN PRN Reason: Pain Stop: 07/05/21 09:25 Last Admin: 06/21/21 20:55 Dose: 2 mg Documented by: Nitroglycerin (Nitroglycerin Sl 0.4 Mg/Tab Tab) 0.4 mg SL UD PRN PRN Reason: Chest Pain Stop: 07/19/21 22:54 Ondansetron HCl (Ondansetron Inj 2 Mg/Ml 2 Ml Vial) 4 mg IV Q6H PRN PRN Reason: Nausea Stop: 07/19/21 22:54 Last Admin: 06/21/21 08:03 Dose: 4 mg Documented by: Potassium Chloride (Potassium Chloride Crtab 20 Meq Tabcr) 40 meq PO TID [facility] Stop: 07/21/21 08:59 Last Admin: 06/22/21 09:17 Dose: 40 meq Documented by: Tramadol HCl (Tramadol Hcl 50 Mg Tablet) 50 mg PO Q4H PRN PRN Reason: Pain Stop: 07/21/21 09:25 Venlafaxine HCl (Venlafaxine Hcl Xr 150 Mg Capxr) 150 mg PO DAILY [facility] Stop: 07/20/21 08:59 Last Admin: 06/22/21 09:22 Dose: 150 mg Documented by: PG Care Time/CCT Total # of Minutes Spent Total Time Spent with Patient: Total time spent is greater than 50% in coordination of care (as documented) at patient's floor/unit and/or counseling patient: Coding Level of Care Code 45079 Subseq Hosp Care Lvl 3 Diagnoses 2019 novel coronavirus-infected pneumonia (NCIP) U07.1; J12.82 Acute respiratory failure due to COVID-19 U07.1; J96.00 Hypoxia R09.02 Bacterial pneumonia J15.9 Acute hypokalemia E87.6 GERD (gastroesophageal reflux disease) K21.9 Vitamin D deficiency E55.9 Anxiety F41.9
[2021-06-23] MEDS: MoRPHine SULFATE 2 MG/ML CARP IV PRN (00:21)
[2021-06-23 06:48] LABS: BUN Creatinine Ratio 31.8 (10-20); Calcium 8.7 mg/dl (8.5-10.1); Creatinine Clr Calc Pharmacy 224.4 ml/min; Est GFR (African American) 139.7 ml/min; Est GFR (Non-African American) 120.6 ml/min; Potassium 3.6 mmol/L (3.5-5.1)
[2021-06-23 06:51] LABS: C Reactive Protein 7.16 mg/dl (0-0.29)
[2021-06-23] MEDS: 4 mg Once Daily x14 days PO SCH (08:51)
[2021-06-23] MEDS: cefTRIAXone SODIUM 2,000 MG in DEXTROSE 5% 50 ML IV SCH (08:51)
[2021-06-23] MEDS: dexAMETHasone 6 MG in SYRINGE 0 ML IV SCH (08:52)
[2021-06-23] MEDS: guaiFENesin 600 MG TABCR PO SCH ×2 (08:52→21:10)
[2021-06-23] MEDS: LORazepam 0.5 MG/1 ML VIAL IV PRN (08:52)
[2021-06-23] MEDS: AZITHROMYCIN 250 MG TAB PO SCH (08:53)
[2021-06-23] MEDS: hydrOXYzine HCl 25 MG TAB PO PRN (08:53)
[2021-06-23] MEDS: ENOXAPARIN INJ 30 MG/0.3 ML SYR SQ SCH ×2 (08:53→21:09)
[2021-06-23] MEDS: POTASSIUM CHLORIDE CRTAB 20 MEQ TABCR PO SCH ×2 (08:54→12:48)
[2021-06-23] MEDS: FUROSEMIDE INJ 20 MG/2 ML VIAL IV SCH (08:54)
[2021-06-23] MEDS: VENLAFAXINE HCL XR 150 MG CAPXR PO SCH (08:54)
--- NOTE | 2021-06-23 10:16 | XRay Report ---
XR chest 1V portable CLINICAL HISTORY: COVID, hypoxia TECHNIQUE: Single frontal radiograph of the chest was obtained. Comparison: Comparison is made to chest one view 06/19/2021 FINDINGS: No lines and tubes are seen. The cardiomediastinal silhouette is stable. Bilateral lower lung predomi nant airspace opacities are seen. Possible small left pleural effusion. No evidence of right pleural effusion. IMPRESSION: Bilateral airspace opacities are slightly improved from prior exam. ACT 112: Negative or not required by law. Electronically signed by: Archie Worrell M.D. 06/23/2021 10:14 AM
--- NOTE | 2021-06-23 13:01 | Hospitalist Progress Note ---
Date of Service June 23, 2021 Assessment & Plan (1) 2019 novel coronavirus-infected pneumonia (NCIP): Plan: tested positive on 06/10, diagnosed at [facility] progressed to the point of needing oxygen, worsening hypoxia, came to [facility] on 06/19 CTA chest shows diffuse, bilateral infiltrates, no evidence of pulmonary emboli dexamethasone 6mg IV daily, day 5 start baricitinib given CRP of 15 and on high flow nasal canula already, day 5, CRP down to 7 today prone as much as possible, somewhat compliant Lasix 20mg IV daily the past few days, can now stop, she is asking to have zhang out this afternoon continue Vapotherm, currently on 30L and 60%, no change in oxygen requirements the past 2 days appreciate consult from Dr. Thomas, pulmonary following (2) Acute respiratory failure due to COVID-19: Plan: requiring 30L and 60%, saturations improve a lot with prone position give Ativan for anxiety to help her sleep give Ultram and/or morphine for low back pain treatment of COVID with dexamethasone and baricitinib Vapotherm settings the same for the past 36 hours, hope to titrate down tomorrow (3) Hypoxia: Plan: acute hypoxic respiratory failure see above (4) Bacterial pneumonia: Plan: procalcitonin in the 30's stop Vanco as MRSA swab negative continue Zithromax and Cefepime for 7 days, day 5 today (5) Acute hypokalemia: Plan: K s 3.6, will stop KCl today as Lasix will be off tomorrow (6) GERD (gastroesophageal reflux disease): (7) Vitamin D deficiency: (8) Anxiety: Plan: ativan PRN Plan: continue treatment, continue to prone as much as possible anticipate discharge in another week Admission and Anticipated Discharge Date Admission Date: June 19, 2021 Subjective patient doing well, still on 30L and 60%, laying prone, trying to do it a lot at night eating okay, small amounts periodically, drinking well asked to get zhang out, will take it out this afternoon, no further Lasix planned cough is dry, intermittent, no chest pain CXR this morning shows some subtle improvement in infiltrates, CRP is 7 asked how long she would be here, told her it is hard to predict, might be ready by the end of next week Review of Systems Review of Systems: All systems reviewed & are unremarkable except as noted in Subjective Respiratory: + cough, + dyspnea and + dyspnea on exertion Cardiovascular: no chest pain and no edema Gastrointestinal: + constipation; no abdominal pain, no nausea, no vomiting and no diarrhea/loose stools Psychiatric: + anxiety Physical Exam Physical Exam: General: well developed, well nourished, morbidly obese female, ill appearing Neck: supple, trachea midline, normal thyroid Lungs: clear to auscultation bilaterally, tachypneic, no accessory muscle use, no respiratory distress Heart: regular S1 and S2, no murmur, peripheral pulses normal, capillary refill normal, no edema Abdomen: soft, NT, ND, + BS, no hepatomegaly, normal to percussion Extremities: normal in appearance, no cyanosis, no petechiae, strength is 5/5 bilaterally Neuro: awake, cooperative, moves all extremities, no focal motor deficits, CN II-XII intact, sensation in extremities intact, normal speech Skin: warm, dry, no rash, normal turgor Psych: Awake, alert oriented x 3, calm and cooperative Results & Data Results & Data ([facility]) Vital Signs (Past 12 Hours) Vital Signs Temp Pulse Pulse Resp BP Pulse Ox 06/23/21 12:15 37.0 C 95 H 30 H 141/80 H 91 06/23/21 08:19 90 22 91 06/23/21 08:12 37.2 C 92 H 20 140/71 90 06/23/21 08:00 73 92 06/23/21 04:15 71 24 90 06/23/21 03:50 37.1 C 72 22 145/72 H 92 Laboratory Results Laboratory Results - last 24 hr 06/23/21 05:59 Sodium 135 L Potassium 3.6 Chloride 99 Carbon Dioxide 30 Anion Gap 6.0 BUN 17 Creatinine 0.54 L Est Cr Clr Drug Dosing 224.4 Est GFR ( Amer) 139.7 Est GFR (Non-Af Amer) 120.6 BUN/Creatinine Ratio 31.8 H Glucose 120 H Calcium 8.7 C-Reactive Protein 7.16 H Medications Administered Current Inpatient Medications Albuterol (Albuterol Hfa 8 Gm Inhaler) 1 puffs INH Q4H PRN PRN Reason: SOB/WHEEZING Stop: 07/19/21 23:02 Azithromycin ([facility] 250 Mg Tab) [facility] Stop: 06/26/21 09:01 Last Admin: 06/23/21 08:53 Dose: 250 mg Documented by: Baricitinib (4 Mg Once Daily X14 Days) 4 mg PO DAILY [facility]; Protocol Stop: 07/04/21 10:59 Last Admin: 06/23/21 08:51 Dose: 4 mg Documented by: Enoxaparin Sodium (Enoxaparin Inj 30 Mg/0.3 Ml Syr) 30 mg SQ Q12 TIFFANI Stop: 07/20/21 20:59 Last Admin: 06/23/21 08:53 Dose: 30 mg Documented by: Guaifenesin (Guaifenesin 600 Mg Tabcr) 1,200 mg PO BID TIFFANI Stop: 07/19/21 22:54 Last Admin: 06/23/21 08:52 Dose: 1,200 mg Documented by: Hydroxyzine HCl (Hydroxyzine Hcl 25 Mg Tab) 25 mg PO TID PRN PRN Reason: anxiety Stop: 07/19/21 22:54 Last Admin: 06/23/21 08:53 Dose: 25 mg Documented by: Lorazepam (Ativan) 0.5 mg in 1 mls @ 0.5 mls/min IV Q3H PRN PRN Reason: Anxiety Stop: 07/19/21 21:21 Last Admin: 06/23/21 08:52 Dose: 0.5 mls/min Documented by: Dexamethasone 6 mg/ Syringe 1.5 mls @ 1 mls/min IV DAILY TIFFANI Stop: 06/30/21 08:59 Last Admin: 06/23/21 08:52 Dose: 1 mls/min Documented by: Ceftriaxone Sodium 2,000 mg/ (Dextrose) 70 mls @ 100 mls/hr IV DAILY [facility]; Protocol Stop: 06/29/21 08:59 Last Infusion: 06/23/21 09:43 Dose: Infused Documented by: Ipratropium Hughes (Ipratropium Hughes Hfa Inhaler) 1 puffs INH Q4H PRN PRN Reason: SOB/WHEEZING Stop: 07/19/21 23:02 Morphine Sulfate (Morphine Sulfate 2 Mg/Ml Carp) 2 mg IV Q4H PRN PRN Reason: Pain Stop: 07/05/21 09:25 Last Admin: 06/23/21 00:21 Dose: 2 mg Documented by: Nitroglycerin (Nitroglycerin Sl 0.4 Mg/Tab Tab) 0.4 mg SL UD PRN PRN Reason: Chest Pain Stop: 07/19/21 22:54 Ondansetron HCl (Ondansetron Inj 2 Mg/Ml 2 Ml Vial) 4 mg IV Q6H PRN PRN Reason: Nausea Stop: 07/19/21 22:54 Last Admin: 06/21/21 08:03 Dose: 4 mg Documented by: Potassium Chloride (Potassium Chloride Crtab 20 Meq Tabcr) 40 meq PO TID TIFFANI Stop: 07/21/21 08:59 Last Admin: 06/23/21 12:48 Dose: 40 meq Documented by: Tramadol HCl (Tramadol Hcl 50 Mg Tablet) 50 mg PO Q4H PRN PRN Reason: Pain Stop: 07/21/21 09:25 Venlafaxine HCl (Venlafaxine Hcl Xr 150 Mg Capxr) 150 mg PO DAILY TIFFANI Stop: 07/20/21 08:59 Last Admin: 06/23/21 08:54 Dose: 150 mg Documented by: PG Care Time/CCT Total # of Minutes Spent Total Time Spent with Patient: Total time spent is greater than 50% in coordination of care (as documented) at patient's floor/unit and/or counseling patient: Coding Level of Care Code 59056 Subseq Hosp Care Lvl 3 Diagnoses 2019 novel coronavirus-infected pneumonia (NCIP) U07.1; J12.82 Acute respiratory failure due to COVID-19 U07.1; J96.00 Hypoxia R09.02 Bacterial pneumonia J15.9 Acute hypokalemia E87.6 GERD (gastroesophageal reflux disease) K21.9 Vitamin D deficiency E55.9 Anxiety F41.9
[2021-06-23] MEDS ORDERED: FAMOTIDINE 20 MG TAB PO PRN (23:12)
[2021-06-23] MEDS: CALCIUM CARBONATE 500 MG CHEWABLE TAB PO PRN (23:24)
[2021-06-23] MEDS: ACETAMINOPHEN 500 MG TAB PO PRN (23:24)
[2021-06-24] MEDS: guaiFENesin 600 MG TABCR PO SCH ×2 (07:42→19:33)
[2021-06-24] MEDS: dexAMETHasone 6 MG in SYRINGE 0 ML IV SCH (07:42)
[2021-06-24] MEDS: ENOXAPARIN INJ 30 MG/0.3 ML SYR SQ SCH ×2 (07:43→19:32)
[2021-06-24] MEDS: AZITHROMYCIN 250 MG TAB PO SCH (07:44)
[2021-06-24] MEDS: VENLAFAXINE HCL XR 150 MG CAPXR PO SCH (07:44)
[2021-06-24] MEDS: LORazepam 0.5 MG/1 ML VIAL IV PRN (09:57)
[2021-06-24] MEDS: cefTRIAXone SODIUM 2,000 MG in DEXTROSE 5% 50 ML IV SCH (09:57)
[2021-06-24] MEDS: 4 mg Once Daily x14 days PO SCH (10:09)
[2021-06-24 10:14] LABS: Basophils # (auto) 0.01 K/uL (0-0.2); Basophils % (auto) 0.1 %; Eosinophils # (auto) 0.14 K/uL (0-0.5); Eosinophils % (auto) 1.3 %; Hematocrit (blood only) 35.1 % (37-47); Hemoglobin 11.7 g/dL (12.0-16.0); Immature Granulocytes % (auto) 0.9 %; Lymphocytes # (auto) 0.99 K/uL (1.2-3.4); Lymphocytes % (auto) 8.9 %; Mean Corpuscular Hemoglobin 30.1 pg (25-34); Mean Corpuscular Hgb Conc 33.3 g/dL (32-36); Mean Corpuscular Volume 90.2 fL (80-100); Mean Platelet Volume 9.9 fL (7.4-10.4); Monocytes # (auto) 0.68 K/uL (0.11-0.59); Monocytes % (auto) 6.1 %; Neutrophils # (auto) 9.26 K/uL (1.4-6.5); Neutrophils % (auto) 82.7 %; Platelet Count 488 K/uL (130-400); RDW Coefficient of Variation 13.2 % (11.5-14.5); RDW Standard Deviation 43.3 fL (36.4-46.3); Red Blood Count 3.89 M/uL (4.2-5.4); White Blood Count 11.18 K/uL (4.8-10.8)
[2021-06-24 10:38] LABS: Albumin Level 2.4 gm/dl (3.4-5.0); BUN Creatinine Ratio 22.9 (10-20); Creatinine Clr Calc Pharmacy 163.2 ml/min; Est GFR (Non-African American) 103.5 ml/min; Potassium 3.7 mmol/L (3.5-5.1)
[2021-06-24 10:40] LABS: Albumin Globulin Ratio 0.5 (0.9-2); Bilirubin,Total 0.6 mg/dl (0.2-1); C Reactive Protein 4.94 mg/dl (0-0.29); Globulin 5.2 gm/dl (2.5-4.0); Total Protein 7.6 gm/dl (6.4-8.2)
--- NOTE | 2021-06-24 13:39 | Hospitalist Progress Note ---
Date of Service June 24, 2021 Assessment & Plan (1) 2019 novel coronavirus-infected pneumonia (NCIP): Plan: tested positive on 06/10, diagnosed at [facility] progressed to the point of needing oxygen, worsening hypoxia, came to [facility] on 06/19 CTA chest shows diffuse, bilateral infiltrates, no evidence of pulmonary emboli Is still on Vapotherm but is weaning down-on 30 L and 55% FiO2 today-continue to titrate off Continue dexamethasone 6mg IV daily, day 6 -Continue baricitinib given CRP of 15 and on high flow nasal canula, CRP down even further today to 4.9 -Procalcitonin trending downward as well-suspect due to bacteremia and bacterial pneumonia as below Encouraged her to continue to prone as much as possible, use incentive spirometer and flutter valve -Was given Lasix 20mg IV daily for a few days but no longer needed appreciate consult from pulmonology-they have signed off (2) Acute respiratory failure due to COVID-19: Plan: As above Lorazepam as needed for anxiety related to shortness of breath (3) Hypoxia: Plan: acute hypoxic respiratory failure see above (4) Bacterial pneumonia: Plan: procalcitonin in the 30's initially This is likely secondary to bacterial pneumonia but also could be from gram- negative bacteremia Initially treated with cefepime and vancomycin Vancomycin was discontinued as MRSA swab negative Cefepime was converted to ceftriaxone and remains on azithromycin Given the gram-negative bacteremia as below, will convert to p.o. levofloxacin for total of 7 days of treatment to include previous treatment with cefepime and ceftriaxone-final date will be 06/26 The levofloxacin will also cover for bacterial pneumonia (5) Acute hypokalemia: Plan: Resolved now that she is off Lasix and received adequate oral replacement Follow BMP (6) GERD (gastroesophageal reflux disease): Plan: No acute issues Calcium carbonate as needed Famotidine as needed (7) Anxiety: Plan: ativan PRN Continue venlafaxine 150 mg p.o. 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 Cough is dry. No chest pain or nausea, no abdominal pains. She is eating and drinking. She is able to get up and use the bedside commode without dyspnea. She is weaned down on the high flow nasal cannula to 30 L and 55% FiO2. Telemetry with normal sinus rhythm with rates in the 90s Review of Systems Review of Systems: All systems reviewed & are unremarkable except as noted in HPI & below Physical Exam Constitutional: WD/WN, vitals as above + obese Eyes: + anicteric sclerae ENMT: external ear and nose normal, oropharynx normal Neck: trachea midline, no thyromegaly Respiratory: normal respiratory effort Auscultation: + crackles (At bases bilaterally); no rhonchi and no wheezes Cardiovascular: RRR, no murmur, no edema Chest (Breasts): Chest: normal inspection of chest Gastrointestinal (Abdomen): normal bowel sounds, soft, nontender, no hepatosplenomegaly Musculoskeletal: Extremities: extremities normal to inspection; no cyanosis and no clubbing Skin: no rashes, warm and dry Neurologic: moves all extremities and awake; no focal motor deficits Psychiatric: A+Ox3, euthymic affect Lymphatic: no lymphedema Results & Data Results & Data ([facility]) Vital Signs (Past 12 Hours) Vital Signs Temp Pulse Pulse Resp BP Pulse Ox 06/24/21 11:58 37.2 C 83 23 124/73 92 06/24/21 10:19 88 18 90 06/24/21 08:18 85 18 90 06/24/21 08:00 88 92 06/24/21 07:49 36.5 C 88 20 116/71 90 06/24/21 04:33 37.3 C 72 35 H 133/74 92 06/24/21 02:10 72 30 H 90 Laboratory Results 06/24/21 06/24/21 06/24/21 Range/Units 09:49 09:49 09:49 WBC 11.18 H (4.8-10.8) K/uL RBC 3.89 L (4.2-5.4) M/uL Hgb 11.7 L (12.0-16.0) g/dL Hct 35.1 L (37-47) % MCV 90.2 (80-100) fL MCH 30.1 (25-34) pg MCHC 33.3 (32-36) g/dL RDW Std Deviation 43.3 (36.4-46.3) fL RDW Coeff of Jose Rafael 13.2 (11.5-14.5) % Plt Count 488 H (130-400) K/uL MPV 9.9 (7.4-10.4) fL Immature Gran % (Auto) 0.9 % Neut % (Auto) 82.7 % Lymph % (Auto) 8.9 % Lawrence % (Auto) 6.1 % Eos % (Auto) 1.3 % Baso % (Auto) 0.1 % Neut # (Auto) 9.26 H (1.4-6.5) K/uL Lymph # (Auto) 0.99 L (1.2-3.4) K/uL Lawrence # (Auto) 0.68 H (0.11-0.59) K/uL Eos # (Auto) 0.14 (0-0.5) K/uL Baso # (Auto) 0.01 (0-0.2) K/uL Immature Gran # (Auto) 0.10 H (0.00-0.02) K/uL Sodium 133 L (136-145) mmol/L Potassium 3.7 (3.5-5.1) mmol/L Chloride 99 (98-107) mmol/L Carbon Dioxide 27 (21-32) mmol/L Anion Gap 7.0 (3-11) BUN 17 (7-18) mg/dl Creatinine 0.74 (0.6-1.2) mg/dl Est Cr Clr Drug Dosing 163.2 ml/min Est GFR ( Amer) 120.0 ml/min Est GFR (Non-Af Amer) 103.5 ml/min BUN/Creatinine Ratio 22.9 H (10-20) Glucose 188 H (70-99) mg/dl Calcium 9.0 (8.5-10.1) mg/dl Total Bilirubin 0.6 (0.2-1) mg/dl AST 33 (15-37) U/L ALT 44 (12-78) U/L Alkaline Phosphatase 46 (45-117) U/L C-Reactive Protein 4.94 H (0-0.29) mg/dl Total Protein 7.6 (6.4-8.2) gm/dl Albumin 2.4 L (3.4-5.0) gm/dl Globulin 5.2 H (2.5-4.0) gm/dl Albumin/Globulin Ratio 0.5 L (0.9-2) Procalcitonin 0.94 H (0-0.5) ng/ml PG Care Time/CCT Total # of Minutes Spent Total Time Spent with Patient: Total time spent is greater than 50% in coordination of care (as documented) at patient's floor/unit and/or counseling patient: Coding Level of Care Code 46707 Subseq Hosp Care Lvl 3 Diagnoses 2019 novel coronavirus-infected pneumonia (NCIP) U07.1; J12.82 Acute respiratory failure due to COVID-19 U07.1; J96.00 Hypoxia R09.02 Bacterial pneumonia J15.9 Acute hypokalemia E87.6 GERD (gastroesophageal reflux disease) K21.9 Anxiety F41.9 Bacteremia R78.81 Obesity E66.9
[2021-06-24] MEDS: ACETAMINOPHEN 500 MG TAB PO PRN (19:32)
[2021-06-25] MEDS: LORazepam 0.5 MG/1 ML VIAL IV PRN (08:30)
[2021-06-25] MEDS: VENLAFAXINE HCL XR 150 MG CAPXR PO SCH (08:32)
[2021-06-25] MEDS: guaiFENesin 600 MG TABCR PO SCH ×2 (08:33→20:17)
[2021-06-25] MEDS: dexAMETHasone 6 MG in SYRINGE 0 ML IV SCH (08:34)
[2021-06-25] MEDS: ENOXAPARIN INJ 30 MG/0.3 ML SYR SQ SCH (10:33)
[2021-06-25] MEDS: 4 mg Once Daily x14 days PO SCH (10:40)
[2021-06-25] MEDS: levoFLOXacin 750 MG TAB PO SCH (10:41)
[2021-06-25] MEDS ORDERED: LORazepam 0.5 MG TAB PO PRN (11:41)
--- NOTE | 2021-06-25 11:43 | Hospitalist Progress Note ---
Date of Service June 25, 2021 Assessment & Plan (1) 2018 novel coronavirus-infected pneumonia (NCIP): Plan: tested positive on 06/10, diagnosed at [facility] progressed to the point of needing oxygen, worsening hypoxia, came to [facility] on 06/19 CTA chest shows diffuse, bilateral infiltrates, no evidence of pulmonary emboli Was on Vapotherm for many days, but is now weaned down to 5 L nasal cannula and much improved Continue dexamethasone 6mg IV daily, day 7 -Continue baricitinib given CRP of 15 and on high flow nasal canula, CRP down even further to 4.9 -Procalcitonin trended downward as well-suspect due to bacteremia and bacterial pneumonia as below Encouraged her to continue to prone as much as possible, use incentive spirometer and flutter valve -Was given Lasix 20mg IV daily for a few days but no longer needed appreciate consult from pulmonology-they have signed off Overall much improved, hopeful that she will be able to discharge to home tomorrow. We will get a two-step walk test prior to discharge. (2) Acute respiratory failure due to COVID-19: Plan: As above Lorazepam as needed for anxiety related to shortness of breath-change from IV to p.o. (3) Hypoxia: Plan: acute hypoxic respiratory failure see above, improving (4) Bacterial pneumonia: Plan: procalcitonin in the 30's initially This is likely secondary to bacterial pneumonia but also could be from gram- negative bacteremia Initially treated with cefepime and vancomycin Vancomycin was discontinued as MRSA swab negative Cefepime was converted to ceftriaxone and remained on azithromycin Given the gram-negative bacteremia as below, converted to p.o. levofloxacin for total of 7 days of treatment to include previous treatment with cefepime and ceftriaxone-final date will be 06/26 The levofloxacin will also cover for bacterial pneumonia (5) Acute hypokalemia: Plan: Resolved now that she is off Lasix and received adequate oral replacement Follow BMP In the morning (6) GERD (gastroesophageal reflux disease): Plan: No acute issues Calcium carbonate as needed Famotidine as needed (7) Anxiety: Plan: ativan PRN-changed to p.o. Continue venlafaxine 150 mg p.o. 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, need 7 days of treatment for gram-negative bacteremia-converted to levofloxacin as above-final date of treatment 06/26 No need for repeat cultures as she is improving (9) Obesity: Plan: BMI is 41.5 Needs weight loss Plan: DVT prophylaxis-Lovenox but decreased to 40 mg once daily given small amount of hemorrhoidal bleeding Disposition-continued stay but continues to improve, she is hopeful for discharge to home tomorrow if oxygen requirement continues to go down Admission and Anticipated Discharge Date Admission Date: June 19, 2021 Subjective Feeling even better today, was weaned off high flow nasal cannula this morning to wall high flow nasal cannula and was at 7 L when I saw her, down to 5 L later in the day. Still with a dry cough but improved, denies chest pain or shortness of breath. Had small amount of bright red blood on the toilet paper after bowel movement today but then had a subsequent bowel movement without blood. He is anxious to get out of the hospital. Telemetry with normal sinus rhythm with rates in 70s to 90s Review of Systems Review of Systems: All systems reviewed & are unremarkable except as noted in HPI & below Physical Exam Constitutional: WD/WN, vitals as above + obese Eyes: + anicteric sclerae Neck: trachea midline, no thyromegaly Respiratory: normal respiratory effort Auscultation: + crackles (At bases bilaterally); no rhonchi and no wheezes Cardiovascular: RRR, no murmur, no edema Chest (Breasts): Chest: normal inspection of chest Gastrointestinal (Abdomen): normal bowel sounds, soft, nontender, no hepatosplenomegaly Musculoskeletal: Extremities: extremities normal to inspection; no cyanosis and no clubbing Skin: no rashes, warm and dry Neurologic: moves all extremities and awake; no focal motor deficits Psychiatric: A+Ox3, euthymic affect Lymphatic: no lymphedema Results & Data Results & Data ([facility]) Vital Signs (Past 12 Hours) Vital Signs Temp Pulse Pulse Resp BP BP Pulse Ox 06/25/21 11:36 36.8 C 84 24 124/69 90 06/25/21 08:12 85 18 91 06/25/21 07:30 37.1 C 88 20 114/51 L 94 06/25/21 03:21 37.3 C 75 16 130/70 90 06/25/21 02:12 82 20 95 PG Care Time/CCT Total # of Minutes Spent Total Time Spent with Patient: Total time spent is greater than 50% in coordination of care (as documented) at patient's floor/unit and/or counseling patient: Coding Level of Care Code 77529 Subseq Hosp Care Lvl 3 Diagnoses 2019 novel coronavirus-infected pneumonia (NCIP) U07.1; J12.82 Acute respiratory failure due to COVID-19 U07.1; J96.00 Hypoxia R09.02 Bacterial pneumonia J15.9 Acute hypokalemia E87.6 GERD (gastroesophageal reflux disease) K21.9 Anxiety F41.9 Bacteremia R78.81 Obesity E66.9
[2021-06-25] MEDS ORDERED: ENOXAPARIN INJ 30 MG/0.3 ML SYR SQ SCH (13:00)
[2021-06-25] MEDS: ACETAMINOPHEN 500 MG TAB PO PRN (20:16)
[2021-06-25] MEDS: CALCIUM CARBONATE 500 MG CHEWABLE TAB PO PRN (20:17)
[2021-06-26 08:03] LABS: Basophils # (auto) 0.01 K/uL (0-0.2); Basophils % (auto) 0.1 %; Eosinophils # (auto) 0.14 K/uL (0-0.5); Eosinophils % (auto) 1.8 %; Hematocrit (blood only) 35.3 % (37-47); Hemoglobin 11.8 g/dL (12.0-16.0); Immature Granulocytes % (auto) 1.3 %; Lymphocytes # (auto) 1.41 K/uL (1.2-3.4); Lymphocytes % (auto) 18.5 %; Mean Corpuscular Hemoglobin 29.9 pg (25-34); Mean Corpuscular Hgb Conc 33.4 g/dL (32-36); Mean Corpuscular Volume 89.6 fL (80-100); Mean Platelet Volume 9.6 fL (7.4-10.4); Monocytes # (auto) 0.67 K/uL (0.11-0.59); Monocytes % (auto) 8.8 %; Neutrophils # (auto) 5.28 K/uL (1.4-6.5); Neutrophils % (auto) 69.5 %; Platelet Count 559 K/uL (130-400); RDW Coefficient of Variation 13.2 % (11.5-14.5); RDW Standard Deviation 43.3 fL (36.4-46.3); Red Blood Count 3.94 M/uL (4.2-5.4); White Blood Count 7.61 K/uL (4.8-10.8)
[2021-06-26 08:30] LABS: Albumin Level 2.6 gm/dl (3.4-5.0); BUN Creatinine Ratio 20.6 (10-20); C Reactive Protein 3.28 mg/dl (0-0.29); Calcium 8.9 mg/dl (8.5-10.1); Est GFR (African American) 132.1 ml/min; Potassium 3.4 mmol/L (3.5-5.1)
[2021-06-26 08:32] LABS: Albumin Globulin Ratio 0.5 (0.9-2); Bilirubin,Total 0.7 mg/dl (0.2-1); Globulin 4.9 gm/dl (2.5-4.0); Total Protein 7.5 gm/dl (6.4-8.2)
[2021-06-26] MEDS: guaiFENesin 600 MG TABCR PO SCH (08:56)
[2021-06-26] MEDS: VENLAFAXINE HCL XR 150 MG CAPXR PO SCH (08:56)
[2021-06-26] MEDS ORDERED: ENOXAPARIN INJ 40 MG/0.4 ML SYR SQ SCH (09:00)
[2021-06-26] MEDS ORDERED: POTASSIUM CHLORIDE CRTAB 20 MEQ TABCR PO STA (09:30)
[2021-06-26] MEDS: 4 mg Once Daily x14 days PO SCH (10:09)
[2021-06-26] MEDS: dexAMETHasone 6 MG in SYRINGE 0 ML IV SCH ×2 (10:10→13:08)
[2021-06-26] MEDS: levoFLOXacin 750 MG TAB PO SCH (13:08)
--- NOTE | 2021-06-26 14:51 | Discharge Summary ---
Date of Service June 26, 2021 Admission HPI Per Admitting Provider Is a 35-year-old female with a past medical history of severe anxiety who presents emergency department for worsening headaches, shortness of breath. She was seen at ER on June 10 and diagnosed with Covid at that time. She states that she had been exposed to Covid positive individual on June 07. She has been experiencing symptoms of fevers and chills, cough since June 10. Original presentation to [place] they did a CT scan of her chest which revealed a blood clot she was started on an oral anticoagulant and sent home. She represented to [place] ER on June 15 at which time the repeat CT scan of her chest could not find a pulmonary embolus and she was advised to stop taking the oral anticoagulant. She was discharged home with oral Decadron 6 mg daily to be taken with food. She did say that she has been having severe nausea and decreased appetite and has not been able to keep any food down. She states that she is not sure how much of the Decadron she was actually able to absorb as she usually threw up after having to take it. Principal Diagnosis Covid-19 pneumonia, acute respiratory failure with hypoxia, secondary community-acquired bacterial pneumonia, bacteremia Discharge Exam Constitutional WD/WN, vitals as above + obese Eyes + anicteric sclerae ENMT external ear and nose normal, oropharynx normal Neck trachea midline, no thyromegaly Respiratory normal respiratory effort Auscultation: + crackles (At bases bilaterally); no rhonchi and no wheezes Cardiovascular RRR, no murmur, no edema Chest (Breasts) Chest: normal inspection of chest Gastrointestinal (Abdomen) normal bowel sounds, soft, nontender, no hepatosplenomegaly Musculoskeletal Extremities: extremities normal to inspection; no cyanosis and no clubbing Skin no rashes, warm and dry Neurologic moves all extremities and awake; no focal motor deficits Psychiatric A+Ox3, euthymic affect Lymphatic no lymphedema Discharge Data Allergies Allergy/AdvReac Type Severity Reaction Status Date / Time No Known Allergies Allergy Mild Unverified 07/01/21 13:26 Consultations 06/19/21 20:24 ED Decision to Admit Stat 06/19/21 22:55 Consult Pulmonology Routine Ordered Studies 06/19/21 17:26 CT angio chest PE protocol Stat Hospital Course () 2018 novel coronavirus-infected pneumonia (NCIP): tested positive on 06/10, diagnosed at [facility] progressed to the point of needing oxygen, worsening hypoxia, came to [facility] on 06/19 CTA chest shows diffuse, bilateral infiltrates, no evidence of pulmonary emboli Was on Vapotherm for many days, but then was weaned down to 1 L nasal cannula at rest and 2 L nasal cannula with exertion on the day of discharge Continue dexamethasone 6mg p.o. daily x3 more days -Continue baricitinib given CRP of 15 and on high flow nasal canula, CRP down even further to 4.9-this will be discontinued upon discharge -Procalcitonin trended downward as well-suspect due to bacteremia and bacterial pneumonia as below Encouraged her to continue to prone as much as possible, use incentive spirometer and flutter valve upon discharge -Was given Lasix 20mg IV daily for a few days but no longer needed appreciate consult from pulmonology-they have signed off Overall much improved, stable for discharge to home (2) Acute respiratory failure due to COVID-19: As above Lorazepam as needed for anxiety related to shortness of breath (3) Hypoxia: acute hypoxic respiratory failure see above, improving (4) Bacterial pneumonia: procalcitonin in the 30's initially This is likely secondary to bacterial pneumonia but also could be from gram- negative bacteremia Initially treated with cefepime and vancomycin Vancomycin was discontinued as MRSA swab negative Cefepime was converted to ceftriaxone and remained on azithromycin Given the gram-negative bacteremia as below, converted to p.o. levofloxacin for total of 7 days of treatment to include previous treatment with cefepime and ceftriaxone-final date will be 06/26 The levofloxacin will also cover for bacterial pneumonia (5) Acute hypokalemia: Resolved now that she is off Lasix and received adequate oral replacement (6) GERD (gastroesophageal reflux disease): No acute issues Calcium carbonate as needed Famotidine as needed (7) Anxiety: ativan PRN-changed to p.o. Continue venlafaxine 150 mg p.o. 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 Nonetheless, need 7 days of treatment for gram-negative bacteremia-converted to levofloxacin as above-final date of treatment 06/26 No need for repeat cultures as she is improving (9) Obesity: BMI is 41.5 Needs weight loss (10) Axillary lymphadenopathy: DVT prophylaxis-Lovenox but decreased to 40 mg once daily given small amount of hemorrhoidal bleeding Disposition-stable for discharge to home Total Time Total Time Spent Total Time Spent (In Minutes): 40 minutes Discharge Plan Discharge Items Patient Disposition: Home - Self-Care Reason For Visit: COVID PNEUMONIA, SEPSIS Discharge Diagnosis: COVID-19 Pneumonia, Acute respiratory failure with hypoxia, Bacteremia Condition on Discharge: Fair Activity: As commented below Bathing: No limitations Exercise/Sports: Gradually increase as tolerated Non-emergency contact: Primary Care Provider Call non-emergency contact if: you have any medication questions and your symptoms worsen Follow-up/Referrals: Natalia Rangel DO [Primary Care Provider] - (Follow up within 1 week.) Diet: Regular Addtl Attending Provider Instructions: You were admitted for COVID-19 with pneumonia and low oxygen levels. You were requiring high amounts of oxygen which was eventually weaned down to only needing 1L of oxygen at rest and 2 L of oxygen via the nasal cannula with exertion. Please stay on the oxygen until your doctor tells you it is safe to stop it. If you develop leg swelling, worsening shortness of breath, chest pains, leg pains, please return to the hospital right away as these can be signs of a blood clot. Blood clots can be prevented with frequent movement as tolerated so make sure you are walking around as much as you can once you get home. You do NOT need to take the Eliquis you were previously prescribed as there was no evidence of a blood clot on the CT scan here. You will need to take 2 more days of the once daily steroid pill called dexamethasone. You finished the antibiotics for the bacterial pneumonia and the bacterial infection in your bloodstream. You did have a mildly enlarged lymph node in the right armpit seen on the CT scan. Please have your doctor follow up on this after discharge. You should have a repeat chest xray in 4-6 weeks to ensure your pneumonia is cleared up. Follow up with your PCP within 1 week. You no longer have to remain on quarantine for COVID as it has been 2 weeks since you first tested positive. Pending Studies at Discharge: No Stand-Alone Forms: [facility], Work/School Release, Smoking Cessation Medications and DC Order Prescriptions: Continued hydroxyzine HCl 25 mg tablet 25 mg PO TID PRN (Reason: anxiety) Qty: 30 RF: 0 omeprazole 20 mg tablet,delayed release (DR/EC) 20 mg PO DAILY Qty: 30 RF: 0 venlafaxine 75 mg capsule,extended release 24hr 150 mg PO DAILY 30 Days Qty: 60 RF: 2 dexamethasone 6 mg tablet 6 mg PO DAILY 7 Days Qty: 2 RF: 0 Discontinued naproxen 500 mg tablet 500 mg PO Q12H PRN (Reason: pain) RF: 0 Eliquis 5 mg (74 tabs) tablets,dose pack 5 mg PO DAILY RF: 0 No Action doxycycline hyclate 100 mg tablet 100 mg PO BID 10 Days Qty: 20 RF: 0 (DME) Oxygen Home Liters Per Minute See Rx Instructions .Route RF: 0 Discharge Orders: Discharge Order (Routine); Ordered 06/26/21 Ordered By: Iza Dinero Admission Data Admit Date/Time: 06/19/21 20:40 Attending Provider: Iza Dinero Admit Provider: Maggi Mohan Primary Care Provider: Natalia Rangel Other Providers: Salvador Stern ; Ulysses Thomas Other Interventions: Discharge Summary Assessment (RN) Last Done: 06/26/21 14:53 Coding Level of Care Code D/C DAY MANAGEMENT >30 MINS Diagnoses 2019 novel coronavirus-infected pneumonia (NCIP) U07.1; J12.82 Acute respiratory failure due to COVID-19 U07.1; J96.00 Hypoxia R09.02 Bacterial pneumonia J15.9 Acute hypokalemia E87.6 GERD (gastroesophageal reflux disease) K21.9 Anxiety F41.9 Bacteremia R78.81 Obesity E66.9 Axillary lymphadenopathy R59.0
== END 2021-06-26 15:15 | disposition home or self-care (01) | DRG 177 ==
LOC: ED 14:43 → SUATTDRO 20:40 → 2S 20:40 → 2E 06-21 05:24 → 3W 06-25 18:08
DX: R78.81 Bacteremia; E66.9 Obesity, unspecified; J12.82 Pneumonia due to coronavirus disease 2019; J96.01 Acute respiratory failure with hypoxia; E87.6 Hypokalemia; E87.3 Alkalosis; Z87.891 Personal history of nicotine dependence; Z68.41 Body mass index [BMI] 40.0-44.9, adult; J15.9 Unspecified bacterial pneumonia; F41.9 Anxiety disorder, unspecified; U07.1 COVID-19